=== PATIENT | male | born 1945 | race Caucasian/White ===

== ENCOUNTER 2016-01-10 13:38 | Outpatient (RCR) | payer MEDICARE, OTHER ==
[~2016-01-10 13:38] MED LIST: AMLO10TA PO; ASPI-480 PO; CHOL100011 PO; CLON0.1T14 PO; CLOP75TA PO; CLOP75TA28 PO; FISH1CAP15 PO; GEMF600T3 PO; INSU100C SQ; INSU100I10 SQ; INSU100I14 SQ; ISORBIDE; ISOS30TA3 PO; LINA5TAB PO; LOSA1TAB23 PO; METF-380 PO; METO100T2 PO; MTF500T PO; POTA20TA15 PO; ROSU20TA14 PO; SITA1TAB6 PO; TMSL.4C PO; [UNRECOGNIZED DRUG - OTHER]; [UNRECOGNIZED DRUG - OTHER]
[2016-01-10 13:48] LABS: BASOPHILS % (AUTO) 1 % (0-10); EOSINOPHILS # (AUTO) 0.3 10^3/uL (0.0-0.3); EOSINOPHILS % (AUTO) 4 % (0-10); LYMPHOCYTES # (AUTO) 1.7 X 10^3 (1.0-4.0); LYMPHOCYTES % (AUTO) 22 % (12-44); MEAN CORPUSCULAR HEMOGLOBIN 30 PG (25-34); MEAN CORPUSCULAR HGB CONC 35 G/DL (32-36); MEAN CORPUSCULAR VOLUME 84 FL (80-99); MONOCYTES # (AUTO) 0.7 X 10^3 (0.0-1.0); MONOCYTES % (AUTO) 9 % (0-12); NEUTROPHILS # (AUTO) 5.1 X 10^3 (1.8-7.8); NEUTROPHILS % (AUTO) 65 % (42-75); PLATELET COUNT 199 10^3/uL (130-400); RED BLOOD COUNT 4.92 10^6/uL (4.35-5.85); RED CELL DISTRIBUTION WIDTH 13.4 % (10.0-14.5); WHITE BLOOD COUNT 7.9 10^3/uL (4.3-11.0)
[2016-01-10 14:21] LABS: ALANINE AMINOTRANSFERASE 26 U/L (0-55); ANION GAP 15 MMOL/L (5-14); ASPARTATE AMINO TRANSFERASE 17 U/L (5-34); BILIRUBIN,TOTAL 0.5 MG/DL (0.1-1.0); BLOOD UREA NITROGEN 19 MG/DL (7-18); BUN/CREATININE RATIO 18; CALCIUM 9.2 MG/DL (8.5-10.1); CARBON DIOXIDE 19 MMOL/L (21-32); CHLORIDE 107 MMOL/L (98-107); CREATININE SERUM 1.08 MG/DL (0.60-1.30); GFR ESTIMATED > 60; GLUCOSE 237 MG/DL (70-105); LACTATE DEHYDROGENASE 200 U/L (125-220); POTASSIUM 3.9 MMOL/L (3.6-5.0); SODIUM 141 MMOL/L (135-145); TOTAL PROTEIN 6.4 G/DL (6.4-8.2)
== END 2016-04-09 | disposition home or self-care (01) ==
LOC: ONC 13:38
PROVIDERS: ATTEND Internal Medicine Hematology & Oncology
DX: C91.40 Hairy cell leukemia not having achieved remission (principal); I50.9 Heart failure, unspecified; I25.10 Atherosclerotic heart disease of native coronary artery without angina pectoris; E11.9 Type 2 diabetes mellitus without complications; F41.9 Anxiety disorder, unspecified; N40.0 Benign prostatic hyperplasia without lower urinary tract symptoms; Z79.899 Other long term (current) drug therapy; Z79.4 Long term (current) use of insulin; Z95.1 Presence of aortocoronary bypass graft; Z87.891 Personal history of nicotine dependence
CPT/HCPCS: 36415; 80053; 83615; 85025; 99213

== ENCOUNTER → 2016-05-20 | Outpatient (CLI) | payer MEDICARE, OTHER ==
[~2016-05-20] MED LIST changes: +GADOBUTROL 10 MMOL/10 ML (GADAVIST) VIAL IV ONE
--- OUTSIDE RECORDS SUMMARY | 2016-05-20 09:05 | XMS REPORT | Continuity of Care Document ---
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 Medications Current Home Medications Medication Dose Units Route Directions Days/Qty Instructions Start Date Amlodipine Besylate 10 Mg 10 Mg Oral Daily 09/17/13 Gemfibrozil (Lopid) 600 Mg 600 Mg Oral Twice A Day 09/17/13 Losartan/Hydrochlorothiazide 1 Each 1 Tab Oral Daily 09/17/13 Metoprolol Tartrate (Lopressor) 100 Mg 100 Mg Oral Twice A Day 09/17 Tamsulosin Hcl 0.4 Mg 0.8 Mg Oral 1700 TAKES 2 (0.4MG) CAPSULES Insulin Glargine 300 Unit/3 Ml 45 Units Sub-Q Am 09/17/13 Insulin Glargine 300 Unit/3 Ml 55 Units Sub-Q Bedtime 09/17/13 Rosuvastatin Calcium 20 Mg 20 Mg Oral 1700 09/17/13 Potassium Chloride 20 Meq 20 Meq Oral Daily 09/23/13 Metformin Hcl (Glucophage) 500 Mg 1,000 Mg Oral Twice A Day With Meals 06/01/14 Isosorbide Mononitrate (Imdur) 30 Mg 30 Mg Oral 1700 06/01/14 Clonidine Hcl 0.1 Mg 0.1 Mg Oral Twice A Day 06/01/14 Fish Oil/Dha/Epa 1 Each 1,200 Mg Oral Daily 06/01/14 Cholecalciferol 1,000 Unit 1,000 Unit Oral Daily 06/01/14 Insulin Aspart 100 Unit/1 Ml 30 Units Sub-Q Twice A Day 06/01/14 Insulin Aspart 100 Unit/1 Ml 15 Units Sub-Q 1200 06/01/14 Past Home Medications Medication Directions Ordered Status Clopidogrel Bisulfate 75 Mg Tablet, 1 Each Oral Daily 09/17/13 Discontinued Rosuvastatin Calcium 20 Mg Tablet, 1 Each Oral Daily 09/17/13 Discontinued Metformin Hcl (Glucophage) 1,000 Mg Tablet, 1 Each Oral Twice A Day With Meals 09/17/13 Discontinued Linagliptin 5 Mg Tablet, 5 Mg Oral Daily 09/17/13 Discontinued [Isorbide/Monotritate] , 30 Mg Daily 09/17/13 Discontinued Aspirin 81 Mg Tablet.dr, 81 Mg Oral Daily 09/17/13 Discontinued [Hydrolozine] Unknown Strength , Unknown Dose Three Times A Day 09/17/13 Discontinued Sitagliptin Phos/Metformin Hcl 1 Each Tablet, 1 Each Oral Twice A Day With Meals 09/23/13 Discontinued Clopidogrel Bisulfate 75 Mg Tablet, 75 Mg Oral Daily 09/23/13 Discontinued Insulin Lispro 100 Unit/1 Ml Cartridge, 30 Units Sub-Q Twice A Day 06/01/14 Discontinued Insulin Lispro 100 Unit/1 Ml Cartridge, 15 Unit Sub-Q 1200 06/01/14 Discontinued Social History Social History Problem Response Recorded Date/Time Alcohol Use Denies Use 09/24/2013 9:20pm Recreational Drug Use No 09/24/2013 9:20pm Recent Foreign Travel [place] [facility] 01/10/2016 1:37pm Hospital Discharge Instructions No hospital discharge instructions. Plan of Care Prescriptions See Medication Section Functional Status No functional status results. Allergies, Adverse Reactions, Alerts No known allergies. Immunizations No immunization records. Vital Signs No known vital signs results. Results Laboratory Results Test Name Result Units Flags Reference Collection Date/Time Result Date/ Time Comments White Blood Count 7.9 10^3/uL 4.3-11.0 01/10/2016 1:44pm 01/10/2016 1: 49pm Red Blood Count 4.92 10^6/uL 4.35-5.85 01/10/2016 1:44pm 01/10/2016 1: 49pm Hemoglobin 14.5 G/DL 13.3-17.7 01/10/2016 1:44pm 01/10/2016 1:49pm Hematocrit 41 % 40-54 01/10/2016 1:44pm 01/10/2016 1:49pm Mean Corpuscular Volume 84 FL 80-99 01/10/2016 1:44pm 01/10/2016 1: 49pm Mean Corpuscular Hemoglobin 30 PG 25-34 01/10/2016 1:44pm 01/10/2016 1: 49pm Mean Corpuscular Hemoglobin Concent 35 G/DL 32-36 01/10/2016 1:44pm 08/2015 1:49pm Red Cell Distribution Width 13.4 % 10.0-14.5 01/10/2016 1:44pm 2015 1:49pm Platelet Count 199 10^3/uL 130-400 01/10/2016 1:44pm 01/10/2016 1:49pm Mean Platelet Volume 10.0 FL 7.4-10.4 01/10/2016 1:44pm 01/10/2016 1: 49pm Neutrophils (%) (Auto) 65 % 42-75 01/10/2016 1:44pm 01/10/2016 1:49pm Lymphocytes (%) (Auto) 22 % 12-44 01/10/2016 1:44pm 01/10/2016 1:49pm Monocytes (%) (Auto) 9 % 0-12 01/10/2016 1:44pm 01/10/2016 1:49pm Eosinophils (%) (Auto) 4 % 0-10 01/10/2016 1:44pm 01/10/2016 1:49pm Basophils (%) (Auto) 1 % 0-10 01/10/2016 1:44pm 01/10/2016 1:49pm Neutrophils # (Auto) 5.1 X 10^3 1.8-7.8 01/10/2016 1:44pm 01/10/2016 1: 49pm Lymphocytes # (Auto) 1.7 X 10^3 1.0-4.0 01/10/2016 1:44pm 01/10/2016 1: 49pm Monocytes # (Auto) 0.7 X 10^3 0.0-1.0 01/10/2016 1:44pm 01/10/2016 1: 49pm Eosinophils # (Auto) 0.3 10^3/uL 0.0-0.3 01/10/2016 1:44pm 01/10/2016 1 :49pm Basophils # (Auto) 0.0 10^3/uL 0.0-0.1 01/10/2016 1:44pm 01/10/2016 1: 49pm Sodium Level 141 MMOL/L 135-145 01/10/2016 1:44pm 01/10/2016 2:22pm Potassium Level 3.9 MMOL/L 3.6-5.0 01/10/2016 1:44pm 01/10/2016 2:22pm Chloride Level 107 MMOL/L 98-107 01/10/2016 1:44pm 01/10/2016 2:22pm Carbon Dioxide Level 19 MMOL/L L 21-32 01/10/2016 1:44pm 01/10/2016 2: 22pm Anion Gap 15 MMOL/L H 5-14 01/10/2016 1:44pm 01/10/2016 2:22pm Blood Urea Nitrogen 19 MG/DL H 7-18 01/10/2016 1:44pm 01/10/2016 2:22pm Creatinine 1.08 MG/DL 0.60-1.30 01/10/2016 1:44pm 01/10/2016 2:22pm BUN/Creatinine Ratio 18 01/10/2016 1:44pm 01/10/2016 2:22pm Estimat Glomerular Filtration Rate > 60 01/10/2016 1:44pm 2015 2:22pm GFR INTERPRETIVE DATA UNITS FOR ESTIMATED GFR (eGFR): mL/min/1.73 M2 REFERENCE RANGE FOR ESTIMATED GFR (eGFR) eGFR NORMAL eGFR >60 MODERATELY DECREASED eGFR 30-59 SEVERLY DECREASED eGFR 15-29 KIDNEY FAILURE <15 (OR DIALYSIS) Glucose Level 237 MG/DL H 70-105 01/10/2016 1:44pm 01/10/2016 2:22pm Calcium Level 9.2 MG/DL 8.5-10.1 01/10/2016 1:44pm 01/10/2016 2:22pm Total Bilirubin 0.5 MG/DL 0.1-1.0 01/10/2016 1:44pm 01/10/2016 2:22pm Alkaline Phosphatase 47 U/L 40-136 01/10/2016 1:44pm 01/10/2016 2:22pm Aspartate Amino Transf (AST/SGOT) 17 U/L 5-34 01/10/2016 1:44pm 2015 2:22pm Alanine Aminotransferase (ALT/SGPT) 26 U/L 0-55 01/10/2016 1:44pm 01/09 2:22pm Lactate Dehydrogenase 200 U/L 125-220 01/10/2016 1:44pm 01/10/2016 2: 22pm Total Protein 6.4 G/DL 6.4-8.2 01/10/2016 1:44pm 01/10/2016 2:22pm Albumin 4.0 G/DL 3.2-4.5 01/10/2016 1:44pm 01/10/2016 2:22pm Procedures No known history of procedures. Encounters Encounter Location Arrival/Admit Date Discharge/Depart Date Attending Provider Discharged Recurring [facility] 01/10/16 1:38pm 11:59pm OSMANY ALDRICH
[2016-05-20 09:42] LABS: BLOOD UREA NITROGEN 19 MG/DL (7-18); BUN/CREATININE RATIO 17; CREATININE SERUM 1.11 MG/DL (0.60-1.30); GFR ESTIMATED > 60
--- NOTE | 2016-05-20 13:05 | Diagnostic Imaging Report ---
PROCEDURE: MR imaging of the brain with and without contrast. TECHNIQUE: Multiplanar, multisequence MR imaging of the brain was performed with and without contrast. INDICATION: History of leukemia and Parkinson's disease. 9 mL of Gadavist is administered intravenously. FINDINGS: There is no diffusion restriction to suggest an acute infarct or other diffusion abnormality. There is nonspecific mild periventricular and deep white matter T2 hyperintense signal seen, commonly seen at the patient's age, and is not associated with mass effect or post contrast enhancement. This is probably related to chronic microvascular ischemic changes. There is no hydrocephalus. The central vascular flow-voids appear grossly unremarkable. The internal auditory canals and inner ear structures appear symmetric. No extra-axial fluid collection or enhancing mass identified. The pituitary gland is normal in size. No hypothalamic or pineal region mass. The paranasal sinuses and orbits appear grossly unremarkable. The pituitary gland appear unremarkable. IMPRESSION: White matter findings are likely secondary to chronic microvascular ischemic changes. No acute infarct. No enhancing mass. Dictated by: Dictated on workstation # [id number]
== END ==
LOC: RAD 09:02
PROVIDERS: ATTEND Psychiatry & Neurology Neurology
DX: G20 Parkinson's disease (principal)
CPT/HCPCS: 36415; 70553; 82565; 84520

== ENCOUNTER 2016-09-23 19:24 | Observation (INO) | payer MEDICARE, OTHER ==
[~2016-09-23] VITALS: Ht 182.9 cm; Wt 94.8 kg
[~2016-09-23 19:24] MED LIST changes: -GADOBUTROL 10 MMOL/10 ML (GADAVIST) VIAL IV ONE
--- NOTE | 2016-09-23 19:37 | ED Syncope ---
General Stated Complaint: DIZZINESS Source of Information: Patient, EMS History of Present Illness Time Seen by Provider: 19:28 Initial Comments PT ARRIVES VIA EMS PT WAS AT FRIEND'S HOUSE, AND WAS STANDING AND SUDDENLY BECAME DIZZY, NAUSEATED , DIAPHORETIC AND PASSED OUT NO INJURY--WAS EASED TO THE GROUND BY BYSTANDERS PT WAS UNRESPONSIVE APPROXIMATELY 2 MINUTES PT STATES HE FEELS COMPLETELY FINE NOW NO CHEST PAIN NO SHORTNESS OF BREATH NO PALPITATIONS NO HEADACHE NO VISION CHANGES NO PARESTHESIAS OR MOTOR DEFICITS DENIES ANY RECENT ILLNESS OR FEVER, ETC. LEGS HAVE BEEN SWOLLEN FOR THE LAST WEEK, BUT PT DOES DRINK PICKLE JUICE AND TOMATO JUICE FOR BREAKFAST EMS STATE ACCUCHECK 189 AT SCENE BP 139/64 AND THEN 160/63, PULSE 50 AND 56, O2 SAT 93% THEN 975 ON O2 AT 4L/NC PT IS DIABETIC AND STATES HE ONLY SNACKED A LITTLE ON CARROTS AND CAULIFLOWER THIS EVENING--HAD NOT HAD A CHANCE TO EAT YET PT TOOK HIS REGULAR MEDICATIONS AT 1630 TONIGHT PT HAD NOT HAD A FULL BEER TONIGHT, AND DOES NOT NORMALLY DRINK NO HISTORY OF SIMILAR PT DOES STATE HE HAS AN ABDOMINAL ANEURYSM, THAT HE GETS CHECKED EVERY 6 MONTHS , AND WAS 4.2 CM A MONTH AGO--STABLE/UNCHANGED PCP: DR. LY Allergies and Home Medications Allergies Coded Allergies: No Known Drug Allergies (Unverified , 09/17/13) Home Medications Amlodipine Besylate 10 Mg Tablet, 10 MG PO DAILY, (Reported) Cholecalciferol 1,000 Unit Capsule, 1,000 UNIT PO DAILY, (Reported) Clonidine HCl 0.1 Mg Tablet, 0.1 MG PO BID, (Reported) Fish Oil/Dha/Epa 1 Each Capsule, 1,200 MG PO DAILY, (Reported) Gemfibrozil 600 Mg Tablet, 600 MG PO BID, (Reported) Insulin Aspart 100 Unit/1 Ml Insuln.pen, 30 UNITS SQ BID, (Reported) Insulin Aspart 100 Unit/1 Ml Insuln.pen, 15 UNITS SQ 1200, (Reported) Insulin Glargine,Hum.rec.anlog 300 Unit/3 Ml Insuln.pen, 45 UNITS SQ AM, ( Reported) Insulin Glargine,Hum.rec.anlog 300 Unit/3 Ml Insuln.pen, 55 UNITS SQ HS, ( Reported) Isosorbide Mononitrate 30 Mg Tab.sr.24h, 30 MG PO 1700, (Reported) Losartan/Hydrochlorothiazide 1 Each Tablet, 1 TAB PO DAILY, (Reported) Metformin Hcl 500 Mg Tablet, 1,000 MG PO BID WITH MEALS, (Reported) Metoprolol Tartrate 100 Mg Tablet, 100 MG PO BID, (Reported) Potassium Chloride 20 Meq Tab.prt.sr, 20 MEQ PO DAILY, (Reported) Rosuvastatin Calcium 20 Mg Tablet, 20 MG PO 1700, (Reported) Tamsulosin Hcl 0.4 Mg Cap.er.24h, 0.8 MG PO 1700, (Reported) TAKES 2 (0.4MG) CAPSULES Constitutional: see HPI, diaphoresis, dizziness EENTM: no symptoms reported Respiratory: no symptoms reported Cardiovascular: see HPI, No chest pain, No edema, No palpitations, syncope, No vascular heart diseas Gastrointestinal: see HPI, No abdominal pain, No constipation, No diarrhea, No loss of appetite, nausea, No vomiting Genitourinary: no symptoms reported Musculoskeletal: no symptoms reported Skin: no symptoms reported Psychiatric/Neurological: See HPI, Denies Headache, Denies Numbness, Denies Paresthesia, Denies Seizure, Denies Tingling, Denies Tremors, Denies Weakness Past Lpcxgmm-Ojgwzb-Ndwstb Hx Patient Social History Alcohol Use: Rarely Uses Recreational Drug Use: No Immunizations Up To Date Date of Pneumonia Vaccine: Feb 05, 2014 Date of Influenza Vaccine: Jan 29, 2014 Surgeries HX Surgeries: Yes (HEMORRHOIDECTOMY; CARDIAC CATHS--STENTS X 4 AND CABG; COLONOSCOPY WITH POLYPECTOMY) Surgeries: Appendectomy, Cardiac, CABG, Coronary Stent, Rectal, Tonsillectomy Respiratory Hx Respiratory Disorders: Yes Respiratory Disorders: Sleep Apnea Cardiovascular Hx Cardiac Disorders: Yes (CABG AND STENTS X 4; AAA 4.2 CM--MONITORED EVERY 6 MONTHS) Cardiac Disorders: Aneurysm, Coronary Artery Disease, Hypertension Neurological Hx Neurological Disorders: No Genitourinary Hx Genitourinary Disorders: Yes Genitourinary Disorders: Benign Prostatic Hyperpl, Kidney Stones Gastrointestinal Hx Gastrointestinal Disorders: Yes Gastrointestinal Disorders: Colitis, Gastrointestinal Bleed, Polyps Musculoskeletal Hx Musculoskeletal Disorders: No Endocrine Hx Endocrine Disorders: Yes Endocrine Disorders: Diabetes, Insulin dep HEENT HX ENT Disorders: Yes HEENT Disorders: Cataract Cancer Hx Cancer: Yes (HAIRY CELL LEUKEMIA; MELAOMA) Cancer: Leukemia, Melanoma Psychosocial Hx Psychiatric Problems: No Integumentary HX Skin/Integumentary Disorder: Yes (SKIN CA ; MELANOMA) Blood Transfusions Hx Blood Disorders: No Family Medical History Family Medial History: Cancer 19 FATHER (ESOPHAGEAL CA. AT 48) G8 BROTHER (LUNG/ORAL CANCER) Family history: Diabetes mellitus 19 FATHER Family history: Hypertension 19 FATHER Physical Exam Vital Signs Vital Sign - Last 12Hours 09/23/16 19:24 Temp 96.2 Pulse 77 Resp 17 B/P (MAP) 160/84 Pulse Ox 97 O2 Delivery Nasal Cannula O2 Flow Rate 4.00 Capillary Refill : General Appearance: No Apparent Distress, WD/WN HEENT: PERRL/EOMI, Pharynx Normal, Other (GLASSES) Neck: Full Range of Motion, Normal Inspection, Non Tender, Supple, No Carotid Bruit, No JVD Cardiovascular: Regular Rate, Rhythm, No JVD, No Murmur, Normal Peripheral Pulses Respiratory: Chest Non Tender, Normal Breath Sounds, No Accessory Muscle Use, No Respiratory Distress Gastrointestinal: Normal Bowel Sounds, No Organomegaly, No Pulsatile Mass, Non Tender, Soft Back: Normal Inspection, No CVA Tenderness, No Vertebral Tenderness Extremities: Normal Capillary Refill, Normal Range of Motion, Non Tender, No Calf Tenderness, Pedal Edema (1+ BILATERALLY) Neurologic/Psychiatric: Alert, Oriented x3, No Motor/Sensory Deficits, Normal Mood/Affect, non destructive testing scientist II-XII Norm as Tested, No Abnormal Cerebellar Tests Cranial Nerves: Normal Hearing, Normal Speech, PERRL Coordination/Gait: Normal Finger to Nose, Normal Gait, Negative Romberg's Sign Motor/Sensory: No Motor Deficit, No Sensory Deficit, No Pronator Drift, Negative Babinski's Sign Reflexes: 2+ Bicep (R), 2+ Bicep (L), 2+ Knee (R), 2+ Knee (L) Skin: Normal Color, Warm/Dry Focused Exam Lactic Acid Level Progress/Results/Core Measures Results/Orders Lab Results Laboratory Tests Test 09/23/16 19:30 09/23/16 20:39 Range/Units White Blood Count 8.1 4.3-11.0 10^3/uL Red Blood Count 4.76 4.35-5.85 10^6/uL Hemoglobin 14.0 13.3-17.7 G/DL Hematocrit 41 40-54 % Mean Corpuscular Volume 86 80-99 FL Mean Corpuscular Hemoglobin 29 25-34 PG Mean Corpuscular Hemoglobin Concent 34 32-36 G/DL Red Cell Distribution Width 13.4 10.0-14.5 % Platelet Count 209 130-400 10^3/uL Mean Platelet Volume 10.7 H 7.4-10.4 FL Neutrophils (%) (Auto) 68 42-75 % Lymphocytes (%) (Auto) 20 12-44 % Monocytes (%) (Auto) 9 0-12 % Eosinophils (%) (Auto) 3 0-10 % Basophils (%) (Auto) 1 0-10 % Neutrophils # (Auto) 5.5 1.8-7.8 X 10^3 Lymphocytes # (Auto) 1.6 1.0-4.0 X 10^3 Monocytes # (Auto) 0.7 0.0-1.0 X 10^3 Eosinophils # (Auto) 0.3 0.0-0.3 10^3/uL Basophils # (Auto) 0.1 0.0-0.1 10^3/uL Prothrombin Time 12.9 12.2-14.7 SEC INR Comment 1.0 0.8-1.4 Activated Partial Thromboplast Time 27 24-35 SEC Sodium Level 143 135-145 MMOL/L Potassium Level 3.8 3.6-5.0 MMOL/L Chloride Level 105 98-107 MMOL/L Carbon Dioxide Level 21 21-32 MMOL/L Anion Gap 17 H 5-14 MMOL/L Blood Urea Nitrogen 20 H 7-18 MG/DL Creatinine 1.09 0.60-1.30 MG/DL Estimat Glomerular Filtration Rate > 60 BUN/Creatinine Ratio 18 0-20 Glucose Level 213 H 70-105 MG/DL Calcium Level 9.3 8.5-10.1 MG/DL Magnesium Level 1.9 1.8-2.4 MG/DL Total Bilirubin 0.7 0.1-1.0 MG/DL Aspartate Amino Transf (AST/SGOT) 25 5-34 U/L Alanine Aminotransferase (ALT/SGPT) 8 0-55 U/L Alkaline Phosphatase 48 40-136 U/L Total Creatine Kinase 245 H 30-200 U/L Creatine Kinase MB 5.4 <6.6 NG/ML Troponin I < 0.30 <0.30 NG/ML B-Type Natriuretic Peptide 32.0 <100.0 PG/ML Total Protein 6.8 6.4-8.2 GM/DL Albumin 3.7 3.2-4.5 GM/DL TSH [place] Testing 1.36 0.35-4.94 UIU/ML Urine Color YELLOW Urine Clarity CLEAR Urine pH 5 5-9 Urine Specific Pimento 1.025 H 1.016-1.022 Urine Protein 4+ NEGATIVE Urine Glucose (UA) 3+ H NEGATIVE Urine Ketones 1+ H NEGATIVE Urine Nitrite NEGATIVE NEGATIVE Urine Bilirubin NEGATIVE NEGATIVE Urine Urobilinogen NORMAL NORMAL MG/DL Urine Leukocyte Esterase 2+ H NEGATIVE Urine RBC (Auto) 1+ H NEGATIVE Urine RBC 0-2 /HPF Urine WBC TNTC H /HPF Urine Squamous Epithelial Cells 10-25 H /HPF Urine Crystals NONE /LPF Urine Bacteria FEW H /HPF Urine Casts NONE /LPF Urine Mucus NEGATIVE /LPF Urine Culture Indicated YES My Orders Orders - RHONDA ANDUJAR DO Saline Lock/Iv-Start (09/23/16 19:34) Orthostatic Vital Signs (09/23/16 19:34) Ekg Tracing (09/23/16 19:34) O2 (09/23/16 19:34) Monitor-Rhythm Ecg Trace Only (09/23/16 19:34) Ct Head Wo (09/23/16 19:34) Cbc With Automated Diff (09/23/16 19:34) Comprehensive Metabolic Panel (09/23/16 19:34) Creatine Kinase (09/23/16 19:34) Creatine Kinase Mb (09/23/16 19:34) Magnesium (09/23/16 19:34) Protime With Inr (09/23/16 19:34) Partial Thromboplastin Time (09/23/16 19:34) Thyroid Analyzer (09/23/16 19:34) Troponin I (09/23/16 19:34) Ua Culture If Indicated (09/23/16 19:34) Chest 1 View, Ap/Pa Only (09/23/16 19:34) BNP (09/23/16 20:26) Urine Culture (09/23/16 20:39) Saline Lock/Iv-Start (09/23/16 21:05) Ns Iv 1000 Ml (Sodium Chloride 0.9%) (09/23/16 21:05) Medications Given in ED Current Medications Medications Dose Ordered Sig/Prabhjot Route Start Time Stop Time Status Last Admin Dose Admin Sodium Chloride 1,000 ml @ 0 mls/hr Q0M ONCE IV 09/23/16 21:05 09/23/16 21:06 DC 09/23/16 21:53 1,000 MLS/HR Vital Signs/I&O Vital Sign - Last 12Hours 09/23/16 19:24 Temp 96.2 Pulse 77 Resp 17 B/P (MAP) 160/84 Pulse Ox 97 O2 Delivery Nasal Cannula O2 Flow Rate 4.00 Progress Note : Progress Note UNEVENTFUL ER STAY--PT HAD NO SYMPTOMS OF ANY KIND DURING ER STAY ORTHOSTATICS MILDLY ABNORMAL--GIVEN IV FLUIDS O2 SATS IN 91-92 RANGE ON ROOM AIR--PLACED ON O2 AT 2L/NC AND SATS REMAINED IN UPPER 90'S FOR REMAINDER OF ER STAY ECG Initial ECG Impression Time: 19:37 Initial ECG Rate: 57 Initial ECG Rhythm: Normal Sinus Initial ECG Impression: Nonspecific Changes (LATERAL LEADS) Initial ECG Comparisson: Unchanged Diagnostic Imaging Comments CT HEAD--NO ACUTE PROCESS CXR--NO ACUTE PROCESS PER RADIOLOGIST REPORTS @ 2027 Reviewed: Reviewed by Me Departure Communication Progress Notes 2112--SPOKE WITH DR. WHITESIDE, HOSPITAL SECURITY OFFICER FOR DR. LY, ACCEPTS PT FOR ADMIT. Impression Impression: Primary Impression: Episode of syncope Additional Impressions: UTI (urinary tract infection) Hypoxia Diabetes mellitus Disposition: ADMITTED INPATIENT Condition: Improved Decision to Admit Reason: Admit from ER (General) Decision to Admit/Date: Sep 23, 2016 Time/Decision to Admit Time: 21:15 Departure-Patient Inst. Referrals: AHSAN LY MD (PCP/Family) Primary Care Physician RHONDA ANDUJAR DO Sep 23, 2016 19:37
[2016-09-23 19:57] LABS: BASOPHILS # (AUTO) 0.1 10^3/uL (0.0-0.1); BASOPHILS % (AUTO) 1 % (0-10); EOSINOPHILS # (AUTO) 0.3 10^3/uL (0.0-0.3); EOSINOPHILS % (AUTO) 3 % (0-10); LYMPHOCYTES # (AUTO) 1.6 X 10^3 (1.0-4.0); LYMPHOCYTES % (AUTO) 20 % (12-44); MEAN CORPUSCULAR HEMOGLOBIN 29 PG (25-34); MEAN CORPUSCULAR HGB CONC 34 G/DL (32-36); MEAN CORPUSCULAR VOLUME 86 FL (80-99); MEAN PLATELET VOLUME 10.7 FL (7.4-10.4); MONOCYTES # (AUTO) 0.7 X 10^3 (0.0-1.0); MONOCYTES % (AUTO) 9 % (0-12); NEUTROPHILS # (AUTO) 5.5 X 10^3 (1.8-7.8); NEUTROPHILS % (AUTO) 68 % (42-75); PLATELET COUNT 209 10^3/uL (130-400); RED BLOOD COUNT 4.76 10^6/uL (4.35-5.85); RED CELL DISTRIBUTION WIDTH 13.4 % (10.0-14.5); WHITE BLOOD COUNT 8.1 10^3/uL (4.3-11.0)
[2016-09-23 20:01] LABS: PROTHROMBIN TIME PATIENT 12.9 SEC (12.2-14.7)
[2016-09-23 20:05] LABS: CHLORIDE 105 MMOL/L (98-107); HEMOLYSIS 101 (-100-29); ICTERUS 0.2 (-100-1.9); LIPEMIA 27 (-100-49); POTASSIUM 3.8 MMOL/L (3.6-5.0); SODIUM 143 MMOL/L (135-145)
[2016-09-23 20:06] LABS: ALBUMIN 3.7 GM/DL (3.2-4.5); MAGNESIUM 1.9 MG/DL (1.8-2.4)
[2016-09-23 20:07] LABS: CALCIUM 9.3 MG/DL (8.5-10.1)
[2016-09-23 20:08] LABS: GLUCOSE 213 MG/DL (70-105); TOTAL PROTEIN 6.8 GM/DL (6.4-8.2)
[2016-09-23 20:09] LABS: ANION GAP 17 MMOL/L (5-14); CARBON DIOXIDE 21 MMOL/L (21-32)
[2016-09-23 20:10] LABS: BILIRUBIN,TOTAL 0.7 MG/DL (0.1-1.0)
[2016-09-23 20:12] LABS: CREATININE SERUM 1.09 MG/DL (0.60-1.30); GFR ESTIMATED > 60
[2016-09-23 20:13] LABS: ASPARTATE AMINO TRANSFERASE 25 U/L (5-34); BLOOD UREA NITROGEN 20 MG/DL (7-18); BUN/CREATININE RATIO 18 (0-20)
[2016-09-23 20:15] LABS: ALANINE AMINOTRANSFERASE 8 U/L (0-55); CREATINE KINASE 245 U/L (30-200)
--- NOTE | 2016-09-23 20:15 | Diagnostic Imaging Report ---
PROCEDURE: CT head without contrast. TECHNIQUE: Multiple contiguous axial images were obtained through the brain without the use of intravenous contrast. INDICATION: Sudden onset of dizziness There are no previous CT head examinations available for comparison. The MRI brain exam of 05/20/16 failed to show any sign of an acute abnormality. On this study, there is no mass, shift of the midline or hemorrhage to indicate an acute intracranial abnormality. The left lateral ventricle is somewhat larger than the right. This finding is similar to the prior study and most likely a developmental variant. The cortical atrophy and periventricular encephalomalacia seen previously are again visualized and no different. The bone windows show no evidence for a fracture or for a destructive lesion. The orbits and sinuses were not visualized in their entirety. Where visualized, there is no acute abnormality. IMPRESSION: 1. There is no evidence for an acute intracranial abnormality. 2. If clinical concern regarding an acute abnormality persists, then a repeat MRI brain exam would be recommended for further study. Dictated by: Dictated on workstation # [id number]
--- NOTE | 2016-09-23 20:18 | Diagnostic Imaging Report ---
EXAMINATION: Portable erect AP chest at 07:57 p.m. INDICATION: Coronary artery disease. FINDINGS: The heart size is within normal limits and stable when compared to 06/01/2014. In the interval since the prior exam, the patient has undergone a cardiac surgical procedure. There are now sternotomy wires and surgical clips evident. There is still no sign of failure, pneumonia, or pleural effusion to suggest an acute abnormality. The mediastinum is not widened. The osseous structures are intact. IMPRESSION: There has been an interval cardiac surgical procedure. There is still no evidence for an acute cardiopulmonary abnormality, however. Dictated by: Dictated on workstation # [id number]
[2016-09-23 20:23] LABS: TROPONIN I < 0.30 NG/ML (<0.30)
[2016-09-23 20:47] LABS: BILIRUBIN,URINE NEGATIVE (NEGATIVE); KETONES,URINE 1+ (NEGATIVE); LEUKOCYTE ESTERASE ,URINE 2+ (NEGATIVE); NITRITE,URINE NEGATIVE (NEGATIVE); PH,URINE 5 (5-9); PROTEIN,URINE 4+ (NEGATIVE); UROBILINOGEN,URINE NORMAL (NORMAL)
[2016-09-23 21:03] LABS: WBC,URINE TNTC /HPF
[2016-09-23] MEDS ORDERED: NS IV 1000 ML 1,000 ML IV ONE (21:05)
[2016-09-23] MEDS ORDERED: cefTRIAXone INJECTION 1,000 MG in NS (IVPB) 50 ML IV ONE (21:30)
[2016-09-23 23:30] VITALS: BP 191/90
[2016-09-24] VITALS (9 sets, daily range): BP systolic 150–173; BP diastolic 76–110
[2016-09-24] MEDS: NS IV 1000 ML 1,000 ML IV SCH ×2 (03:14→10:04)
[2016-09-24 04:13] LABS: BASOPHILS # (AUTO) 0.1 10^3/uL (0.0-0.1); BASOPHILS % (AUTO) 1 % (0-10); EOSINOPHILS # (AUTO) 0.3 10^3/uL (0.0-0.3); EOSINOPHILS % (AUTO) 3 % (0-10); LYMPHOCYTES # (AUTO) 1.8 X 10^3 (1.0-4.0); LYMPHOCYTES % (AUTO) 23 % (12-44); MEAN CORPUSCULAR HEMOGLOBIN 30 PG (25-34); MEAN CORPUSCULAR HGB CONC 35 G/DL (32-36); MEAN CORPUSCULAR VOLUME 86 FL (80-99); MEAN PLATELET VOLUME 10.2 FL (7.4-10.4); MONOCYTES # (AUTO) 0.7 X 10^3 (0.0-1.0); MONOCYTES % (AUTO) 8 % (0-12); NEUTROPHILS # (AUTO) 5.1 X 10^3 (1.8-7.8); NEUTROPHILS % (AUTO) 65 % (42-75); PLATELET COUNT 181 10^3/uL (130-400); RED BLOOD COUNT 4.46 10^6/uL (4.35-5.85); RED CELL DISTRIBUTION WIDTH 13.2 % (10.0-14.5); WHITE BLOOD COUNT 7.9 10^3/uL (4.3-11.0)
[2016-09-24 04:34] LABS: ALANINE AMINOTRANSFERASE 9 U/L (0-55); ALBUMIN 3.4 GM/DL (3.2-4.5); ANION GAP 12 MMOL/L (5-14); ASPARTATE AMINO TRANSFERASE 17 U/L (5-34); BILIRUBIN,TOTAL 0.7 MG/DL (0.1-1.0); BLOOD UREA NITROGEN 15 MG/DL (7-18); BUN/CREATININE RATIO 19 (0-20); CALCIUM 8.7 MG/DL (8.5-10.1); CARBON DIOXIDE 25 MMOL/L (21-32); CHLORIDE 106 MMOL/L (98-107); GFR ESTIMATED > 60; GLUCOSE 170 MG/DL (70-105); HEMOLYSIS 13 (-100-29); ICTERUS 0.6 (-100-1.9); LIPEMIA 5 (-100-49); POTASSIUM 3.2 MMOL/L (3.6-5.0); SODIUM 143 MMOL/L (135-145); TOTAL PROTEIN 5.8 GM/DL (6.4-8.2)
[2016-09-24] MEDS ORDERED: inSUlin (REGULAR) HUMAN 1 UNIT/0.01 ML (CHARGE PER UNIT) SC SCH (06:00)
[2016-09-24] MEDS ORDERED: PENI500T PO (09:05)
--- NOTE | 2016-09-24 11:13 | Short Stay Summary-Hospitalist ---
HPI History of Present Illness: HPI/Chief Complaint Mr. Brown is a 70-year-old white male who reports that he had been feeling well up until the evening of his admission. He was sitting on a barstool and started to feel weak and lightheaded. He stood up to try to find a couch with his at his side she states he became quite pale and passed out. They laid him down where he aroused and what seemed like a minute or 2 per her report although she was understandably panicked at a time. He had no loss of bowel or bladder control and no motor activity was reported. He knew where he was upon waking up just felt weak and there was no reported confusion. He has a history of diabetes but no evidence for hypoglycemia upon arrival to the emergency room without receiving D50 or anything per mouth blood sugar was over 200. He's had one other previous episode of lightheadedness several years ago but no reported past history of syncope. He does have a history of coronary artery disease and refractory hypertension for which she has been on clonidine and metoprolol previously without symptomatic bradycardia. He denied chest discomfort he also denied increased urinary frequency over baseline dysuria pyuria or hematuria. He was noted to have too numerous to count white cells in his urine and trace bacteria currently growing gram-positive cocci in chains. He has no previous history of urinary tract infection. He has not had any recent instrumentation of the urinary tract. There have been no recent medication additions. He has no past history of significant arrhythmias Date Seen 09/24/16 Time Seen by Provider: 07:00 Attending Physician Ahsan Ly MD PCP Ahsan Ly MD Referring Physician Date of Admission Sep 23, 2016 at 21:15 Home Medications & Allergies Home Medications Reviewed patient Home Medication Reconciliation Form Allergies Allergies Coded Allergies No Known Drug Allergies (Unverified09/17/13) Past [id number] Hx Patient Social History Alcohol Use: Occasionally Uses Recreational Drug Use: No Smoking Status: Never a Smoker 2nd Hand Smoke Exposure: No Physical Abuse Screen: No Sexual Abuse: No Recent Foreign Travel: No Contact w/other who traveled: No Recent Hopitalizations: No Recent Infectious Disease Expo: No Immunizations Up To Date Date of Pneumonia Vaccine: Feb 05, 2015 Date of Influenza Vaccine: Jan 29, 2014 Seasonal Allergies Seasonal Allergies: No Surgeries HX Surgeries: Yes (HEMORRHOIDECTOMY; CARDIAC CATHS--STENTS X 4 AND CABG; COLONOSCOPY WITH POLYPECTOMY) Surgeries: Appendectomy, Cardiac, CABG, Coronary Stent, Rectal, Tonsillectomy Respiratory Hx Respiratory Disorders: Yes Cardiovascular Hx Cardiovascular Disorders: Yes (CABG AND STENTS X 4; AAA 4.2 CM--MONITORED EVERY 6 MONTHS) Cardiac Disorders: Aneurysm, Coronary Artery Disease, Hypertension Neurological Hx Neurological Disorders: No Genitourinary Hx Genitourinary Disorders: Yes Genitourinary Disorders: Benign Prostatic Hyperpl, Kidney Stones Gastrointestinal Hx Gastrointestinal Disorders: Yes Gastrointestinal Disorders: Colitis, Gastrointestinal Bleed, Polyps Musculoskeletal Hx Musculoskeletal Disorders: No Endocrine Hx Endocrine Disorders: Yes Endocrine Disorders: Diabetes, Insulin dep HEENT HX ENT Disorders: Yes HEENT Disorders: Cataract Cancer Hx Cancer: Yes (HAIRY CELL LEUKEMIA; MELAOMA) Cancer: Leukemia, Melanoma Psychosocial Hx Psychiatric Problems: No Integumentary HX Skin/Integumentary Disorder: Yes (SKIN CA ; MELANOMA) Blood Transfusions Hx Blood Disorders: No Family Medical History Family Hx: Cancer 19 FATHER (ESOPHAGEAL CA. AT 48) G8 BROTHER (LUNG/ORAL CANCER) Family history: Diabetes mellitus Family history: Hypertension 19 FATHER Review of Systems Date Seen by Provider: Sep 24, 2016 Time Seen by Provider: 07:00 Constitutional: diaphoresis, weakness (at the time of syncope currently states he feels well) Respiratory: no symptoms reported, see HPI, No cough, No dyspnea on exertion, No orthopnea, No phlegm, No short of breath Cardiovascular: see HPI, No chest pain, No edema, No Hx of Intervention, No palpitations, syncope, No vascular heart diseas, No other Gastrointestinal: nausea (mild just before and after syncopal episode.) Genitourinary: see HPI Physical Exam Physical Exam Vital Signs Vital Sign - Last 12Hours 09/23/16 19:24 Temp 96.2 Pulse 77 Resp 17 B/P (MAP) 160/84 Pulse Ox 97 O2 Delivery Nasal Cannula O2 Flow Rate 4.00 Capillary Refill : Less Than 3 Seconds General Appearance: No Apparent Distress, WD/WN HEENT: PERRL/EOMI Neck: Full Range of Motion, Normal Inspection, Non Tender Respiratory: Chest Non Tender, Lungs Clear, Normal Breath Sounds, No Accessory Muscle Use, No Respiratory Distress Cardiovascular: Regular Rate, Rhythm, No Edema, No Gallop, No JVD, Normal Peripheral Pulses, Other (over 6 systolic ejection murmur no diastolic murmurs are noted. This is unchanged from this patient's baseline.) Extremity: Normal Capillary Refill, Normal Inspection, Normal Range of Motion, Non Tender, No Calf Tenderness, No Pedal Edema Skin: Normal Color, Warm/Dry Results Results/Procedures Lab Laboratory Tests 09/23/16 19:30 09/24/16 03:50 Short Stay Diagnosis Discharge Diagnosis-Short Stay Admission Diagnosis 1. Syncope of vasovagal etiology. 2. History of type II diabetes mellitus insulin requiring. 3. History of coronary artery disease with preserved left circular systolic function. 4. Urinary tract infection without sepsis Final Discharge Diagnosis as per above Conclusion Plan A she was admitted to the intensive care unit for overnight no arrhythmias were noted. While he slept sinus bradycardia was noted the upper 40s to lower 50s with no hypotension. Repeat orthostatic blood pressures were obtained in the morning before he had had any antihypertensive medication. His standing blood pressure was reportedly 150/110 with sinus tachycardia and a heart rate of 120. He was adamant about discharge stating that he felt well and continued to deny dysuria and did not exhibit increased frequency. He was able to ambulate without difficulty denying any chest symptoms or shortness of breath. Due to pyuria and gram-positive cocci in chains he was started on penicillin VK 500 mg 3 times a day with culture and sensitivity report pending at the time of this dictation. We discussed the importance of maintaining hydration and his clonidine was discontinued. He is to keep his appointment with me in 48 hours. We did discuss vasovagal syncope as being the most likely etiology although I could not rule out significant Bradyarrythmia or less likely tachyarrhythmia. For recurrent symptoms he will need early cardiology follow-up with event monitoring. His lactate level was mildly elevated but coming down last level just a little over 2. The patient however had no symptoms to suggest sepsis. This is likely due to hypotension surrounding syncope considering the patient looks and feels well currently with asymptomatic high blood pressure prior to receiving his antihypertensive medication. he will keep his already scheduled appointment with me this . He is to return to the emergency room should he have presyncope or syncope again. His is instructed to do all the driving in the interim. Clinical Quality Measures DVT/VTE Risk/Contraindication: Risk Factor Score Per Nursin RFS Level Per Nursing on Admit: 3=High AHSAN LY MD Sep 24, 2016 11:13
--- OUTSIDE RECORDS SUMMARY | 2016-09-26 13:06 | XMS REPORT | Continuity of Care Document ---
Author Author [facility] Organization [facility] Address Unknown Phone Unavailable Allergies Active Description Code Type Severity Reaction Onset Reported/Identified Relationship to Patient Clinical Status Yes No Known Drug Allergies [id number] Drug Allergy Unknown N/ A 09/17/2013 Medications Problems Date Dx Coded Attending Type Code Diagnosis Diagnosed By 09/17/2013 AHSAN LY MD Ot 211.3 BENIGN NEOPLASM LG BOWEL 09/17/2013 AHSAN LY MD Ot 569.0 ANAL RECTAL POLYP 09/17/2013 AHSAN LY MD Ot V76.51 SCREEN MAL NEOP-COLON 09/24/2013 AHSAN LY MD Ot 250.00 DIAB EDSON WO COMPL, TYPE II OR UNSPEC TY 09/24/2013 AHSAN LY MD Ot 272.4 HYPERLIPIDEMIA NEC/NOS 09/24/2013 AHSAN LY MD Ot 285.1 AC POSTHEMORRHAG ANEMIA 09/24/2013 AHSAN LY MD Ot 401.9 HYPERTENSION NOS 09/24/2013 AHSAN LY MD Ot 414.01 CORONARY ATHEROSCLEROSIS OF [place] CORON 09/24/2013 AHSAN LY MD Ot 998.11 HEMOR COMPLIC A PROCEDURE 09/24/2013 AHSAN LY MD Ot V45.82 PERCUTANEOUS TRANSLUM CORON ANGIOPLASTY 09/24/2013 AHSAN LY MD Ot V58.67 LONG-TERM (CURRENT) USE OF INSULIN 09/30/2013 AHSAN LY MD Ot 250.00 DIAB EDSON WO COMPL, TYPE II OR UNSPEC TY 09/30/2013 AHSAN LY MD Ot 272.4 HYPERLIPIDEMIA NEC/NOS 09/30/2013 AHSAN LY MD Ot 278.00 OBESITY, NOS 09/30/2013 AHSAN LY MD Ot 285.1 AC POSTHEMORRHAG ANEMIA 09/30/2013 AHSAN LY MD Ot 327.23 OBSTRUCTIVE SLEEP APNEA (ADULT) (PEDIATR 09/30/2013 AHSAN LY MD Ot 401.9 HYPERTENSION NOS 09/30/2013 AHSAN LY MD Ot 414.01 CORONARY ATHEROSCLEROSIS OF [place] CORON 09/30/2013 MALACHI DAVEY, AHSAN Shipman Ot 427.61 ATRIAL PREMATURE BEATS 09/30/2013 AHSAN LY MD Ot 427.69 PREMATURE BEATS NEC 09/30/2013 AHSAN LY MD Ot 998.11 HEMOR COMPLIC A PROCEDURE 09/30/2013 AHSAN LY MD Ot V45.82 PERCUTANEOUS TRANSLUM CORON ANGIOPLASTY 09/30/2013 AHSAN LY MD Ot V58.67 LONG-TERM (CURRENT) USE OF INSULIN 09/30/2013 AHSAN LY MD Ot V85.31 BODY MASS INDEX 31.0-31.9, ADULT 05/04/2014 AHSAN LY MD Ot V72.84 05/04/2014 AHSAN LY MD Ot 280.0 05/04/2014 AHSAN LY MD Ot 578.9 05/05/2014 AHSAN LY MD Ot V72.84 05/05/2014 AHSAN LY MD Ot 280.0 05/05/2014 AHSAN LY MD Ot 578.9 06/01/2014 AHSAN LY MD Ot V72.84 06/01/2014 AHSAN LY MD Ot 280.0 06/01/2014 AHSAN LY MD Ot 578.9 06/01/2014 RAHUL DAVEY, HIEU Miranda Ot 272.4 06/01/2014 RAHUL DAVEY, HIEU Miranda Ot 278.00 06/01/2014 RAHUL DAVEY, HIEU Miranda Ot 401.9 06/01/2014 RAHUL DAVEY, HIEU Miranda Ot 414.00 06/01/2014 RAHUL DAVEY, HIEU J Ot 427.69 06/01/2014 RAHUL DAVEY, HIEU J Ot 272.4 06/01/2014 RAHUL DAVEY, HIEU J Ot 278.00 06/01/2014 RAHUL DAVEY, HIEU Miranda Ot 401.9 06/01/2014 RAHUL DAVEY, HIEU J Ot 414.00 06/01/2014 RAHUL DAVEY, HIEU J Ot 427.69 06/01/2014 OSMANY ALDRICH Ot 202.40 06/01/2014 OSMANY ALDRICH Ot 250.00 06/01/2014 OSMANY ALDRICH Ot 300.00 06/01/2014 OSMANY ALDRICH Ot 414.00 06/01/2014 VALDEMAROSMANY COSTELLO N Ot 428.0 06/01/2014 VALDEMAR, OSMANY N Ot 600.00 06/01/2014 VALDEMAR, OSMANY N Ot V15.82 06/01/2014 VALDEMAROSMANY COSTELLO N Ot V45.81 06/01/2014 VALDEMAROSMANY COSTELLO N Ot V58.67 06/01/2014 VALDEMAROSMANY COSTELLO N Ot V58.69 06/01/2014 Ot 202.40 LEUKEMIC RETICULOENDOTHELLOSIS EXTRNDL 06/01/2014 Ot 250.00 DIAB EDSON WO COMPL, TYPE II OR UNSPEC TY 06/01/2014 Ot 272.4 HYPERLIPIDEMIA NEC/NOS 06/01/2014 Ot 401.9 HYPERTENSION NOS 06/01/2014 Ot 414.01 CORONARY ATHEROSCLEROSIS OF [place] CORON 06/01/2014 Ot 427.69 PREMATURE BEATS NEC 06/01/2014 Ot 794.30 ABN CARDIOVASC STUDY NOS 06/01/2014 Ot V45.82 PERCUTANEOUS TRANSLUM CORON ANGIOPLASTY 06/01/2014 Ot V58.67 LONG-TERM (CURRENT) USE OF INSULIN 06/01/2014 Ot V58.69 OT MED,LT,CURRENT USE 06/02/2014 HIEU KAY MD Ot 272.4 06/02/2014 RAHUL DAVEY, HIEU Miranda Ot 278.00 06/02/2014 HIEU KAY MD Ot 401.9 06/02/2014 HIEU KAY MD Ot 414.00 06/02/2014 HIEU KAY MD Ot 427.69 07/01/2014 VALDEMARGIAN COSTELLOSHAWN N Ot 202.40 07/01/2014 VALDEMAR, GIANSHAWN N Ot 250.00 07/01/2014 VALDEMAR, GIANSHAWN N Ot 300.00 07/01/2014 VALDEMAR, GIANSHAWN N Ot 414.00 07/01/2014 VALDEMAR, OSMANY N Ot 428.0 07/01/2014 VALDEMAR, GIANSHAWN N Ot 600.00 07/01/2014 VALDEMARGIAN COSTELLOSHAWN N Ot V15.82 07/01/2014 VALDEMAROSMANY COSTELLO N Ot V45.81 07/01/2014 VALDEMARGIANSHAWN N Ot V58.67 07/01/2014 VALDEMARGIANSHAWN N Ot V58.69 07/11/2014 MALACHI DAVEY, AHSAN Shipman Ot V72.84 07/11/2014 MALACHI DAVEY, AHSAN Shipman Ot 280.0 07/11/2014 MALACHI DAVEY, AHSAN Shipman Ot 578.9 07/11/2014 RAHUL DAVEY, HIEU Miranda Ot 272.4 07/11/2014 RAHUL DAVEY, HIEU Miranda Ot 278.00 07/11/2014 RAHUL DAVEY, HIEU Miranda Ot 401.9 07/11/2014 RAHUL DAVEY, HIEU Miranda Ot 414.00 07/11/2014 RAHUL DAVEY, HIEU Miranda Ot 427.69 07/11/2014 RAHUL DAVEY, HIEU Miranda Ot 272.4 07/11/2014 RAHUL DAVEY, HIEU Miranda Ot 278.00 07/11/2014 RAHUL DAVEY, HIEU Miranda Ot 401.9 07/11/2014 RAHUL DAVEY, HIEU Miranda Ot 414.00 07/11/2014 RAHUL DAVEY, HIEU Miranda Ot 427.69 07/11/2014 VALDEMAR, BOBAN N Ot 202.40 07/11/2014 VALDEMAR, BOBAN N Ot 250.00 07/11/2014 VALDEMAR, BOBAN N Ot 300.00 07/11/2014 VALDEMAR, BOBAN N Ot 414.00 07/11/2014 VALDEMAR, BOBAN N Ot 428.0 07/11/2014 VALDEMAR, BOBAN N Ot 600.00 07/11/2014 VALDEMAR, BOBAN N Ot V15.82 07/11/2014 VALDEMAR, BOBAN N Ot V45.81 07/11/2014 VALDEMAR, BOBAN N Ot V58.67 07/11/2014 VALDEMAR, BOBAN N Ot V58.69 07/11/2014 Ot 240.9 07/14/2014 Ot 240.9 08/24/2014 VALDEMAR, BOBAN N Ot 202.40 LEUKEMIC RETICULOENDOTHELLOSIS EXTRNDL 08/24/2014 VALDEMAR, BOBAN N Ot 250.00 DIAB EDSON WO COMPL, TYPE II OR UNSPEC TY 08/24/2014 VALDEMAR BOBAN N Ot 300.00 ANXIETY STATE NOS 08/24/2014 VALDEMAR BOBAN N Ot 414.00 CORON ATHEROSCLER NOS TYPE VESSEL, NATIV 08/24/2014 VALDEMAR BOBAN N Ot 428.0 CONGESTIVE HEART FAILURE NOS 08/24/2014 VALDEMAR BOBSHAWN N Ot 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 (BENIGN) 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 08/24/2014 OSMANY ALDRICH Ot V15.82 HISTORY OF TOBACCO USE 08/24/2014 OSMANY ALDRICH Ot V45.81 AORTOCORONARY BYPASS 08/24/2014 OSMANY ALDRICH Ot V58.67 LONG-TERM (CURRENT) USE OF INSULIN 08/24/2014 OSMANY ALDRICH Ot V58.69 OTH MED,LT,CURRENT USE 09/05/2014 HIEU KAY MD Ot V45.81 09/05/2014 RAHUL DAVEY, HIEU Miranda Ot V57.89 10/09/2014 HIEU KAY MD Ot V45.81 AORTOCORONARY BYPASS 10/09/2014 RAHUL DAVEY, HIEU Miranda Ot V57.89 REHABILITATION PROC NEC 10/14/2014 HIEU KAY MD Ot V45.81 10/14/2014 HIEU KAY MD Ot V57.89 10/14/2014 HIEU KAY MD Ot V45.81 10/14/2014 RAHUL DAVEY, HIEU Miranda Ot V57.89 10/14/2014 RAHUL DAVEY, HIEU Miranda Ot V45.81 10/14/2014 RAHUL DAVEY, HIEU Miranda Ot V57.89 10/14/2014 RAHUL DAVEY, HIEU Miranda Ot V45.81 10/14/2014 HIEU KAY MD Ot V57.89 10/17/2014 HIEU KAY MD Ot V45.81 10/17/2014 RAHUL DAVEY, HIEU Miranda Ot V57.89 12/02/2014 HIEU KAY MD Ot V45.81 12/02/2014 HIEU KAY MD Ot V57.89 12/19/2014 OSMANY ALDRICH Ot 202.40 12/19/2014 OSMANY ALDRICH Ot 250.00 12/19/2014 OSMANY ALDRICH Ot 300.00 12/19/2014 OSMANY ALDRICH Ot 414.00 12/19/2014 OSMANY ALDRICH Ot 428.0 12/19/2014 OSMANY ALDRICH Ot 600.00 12/19/2014 OSMANY ALDRICH Ot V15.82 12/19/2014 OSMANY ALDRICH Ot V45.81 12/19/2014 VALDEMAR, BOBAN N Ot V58.67 12/19/2014 VALDEMAR, BOBAN N Ot V58.69 12/19/2014 VALDEMAR, BOBAN N Ot 202.40 12/19/2014 VALDEMAR, BOBAN N Ot 250.00 12/19/2014 VALDEMAR, BOBAN N Ot 300.00 12/19/2014 VALDEMAR, BOBAN N Ot 414.00 12/19/2014 VALDEMAR, BOBAN N Ot 428.0 12/19/2014 VALDEMAR, BOBAN N Ot 600.00 12/19/2014 VALDEMAR, BOBAN N Ot V15.82 12/19/2014 VALDEMAR, BOBAN N Ot V45.81 12/19/2014 VALDEMAR, BOBAN N Ot V58.67 12/19/2014 VALDEMAR, BOBAN N Ot V58.69 12/27/2014 VALDEMAR, BOBAN N Ot 202.40 12/27/2014 VALDEMAR, BOBAN N Ot 250.00 12/27/2014 VALDEMAR, BOBAN N Ot 300.00 12/27/2014 VALDEMAR, BOBAN N Ot 414.00 12/27/2014 VALDEMAR, BOBAN N Ot 428.0 12/27/2014 VALDEMAR, BOBAN N Ot 600.00 12/27/2014 VALDEMAR, BOBAN N Ot E11.9 12/27/2014 VALDEMAR, BOBAN N Ot F41.9 12/27/2014 VALDEMAR, BOBAN N Ot I25.10 12/27/2014 VALDEMAR, BOBAN N Ot I50.9 12/27/2014 VALDEMAR, BOBAN N Ot N40.0 12/27/2014 VALDEMAR, BOBAN N Ot V15.82 12/27/2014 VALDEMAR, BOBAN N Ot V45.81 12/27/2014 VALDEMAR, BOBAN N Ot V58.67 12/27/2014 VALDEMAR, BOBAN N Ot V58.69 12/27/2014 VALDEMAR, BOBAN N Ot Z79.4 12/27/2014 VALDEMAR, BOBAN N Ot Z87.891 12/27/2014 VALDEMAR, BOBAN N Ot Z95.1 01/04/2015 VALDEMAR, BOBAN N Ot 202.40 LEUKEMIC RETICULOENDOTHELLOSIS EXTRNDL 01/04/2015 VALDEMAR, BOBAN N Ot 250.00 DIAB EDSON WO COMPL, TYPE II OR UNSPEC TY 01/04/2015 OSMANY ALDRICH N Ot 300.00 ANXIETY STATE NOS 01/04/2015 OSMANY ALDRICH N Ot 414.00 CORON ATHEROSCLER NOS TYPE VESSEL, NATIV 01/04/2015 OSMANY ALDRICH N Ot 428.0 CONGESTIVE HEART FAILURE NOS 01/04/2015 OSMANY ALDRICH N Ot 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 (BENIGN) 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 01/04/2015 OSMANY ALDRICH N Ot V15.82 HISTORY OF TOBACCO USE 01/04/2015 OSMANY ALDRICH N Ot V45.81 AORTOCORONARY BYPASS 01/04/2015 OSMANY ALDRICH N Ot V58.67 LONG-TERM (CURRENT) USE OF INSULIN 01/04/2015 OSMANY ALDRICH Ot V58.69 OTH MED,LT,CURRENT USE 01/04/2015 RAHUL DAVEY, HIEU Miranda Ot V45.81 AORTOCORONARY BYPASS 01/04/2015 RAHUL DAVEY, HIEU Miranda Ot V57.89 REHABILITATION PROC NEC 01/01/2016 OSMANY ALDRICH N Ot 202.40 01/01/2016 OSMANY ALDRICH N Ot 250.00 01/01/2016 VALDEMAROSMANY COSTELLO N Ot 300.00 01/01/2016 OSMANY ALDRICH N Ot 414.00 01/01/2016 OSMANY ALDRICH N Ot 428.0 01/01/2016 OSMANY ALDRICH N Ot 600.00 01/01/2016 OSMANY ALDRICH N Ot E11.9 TYPE 2 DIABETES MELLITUS WITHOUT COMPLIC 01/01/2016 OSMANY ALDRICH N Ot F41.9 ANXIETY DISORDER, UNSPECIFIED 01/01/2016 OSMANY ALDRICH N Ot I25.10 ATHSCL HEART DISEASE OF [place] CORONARY 01/01/2016 OSMANY ALDRICH N Ot I50.9 HEART FAILURE, UNSPECIFIED 01/01/2016 OSMANY ALDRICH N Ot N40.0 ENLARGED PROSTATE WITHOUT LOWER URINARY 01/01/2016 OSMANY ALDRICH N Ot V15.82 01/01/2016 OSMANY ALDRICH N Ot V45.81 01/01/2016 OSMANY ALDRICH N Ot V58.67 01/01/2016 OSMANY ALDRICH N Ot V58.69 01/01/2016 OSMANY ALDRICH Ot Z79.4 MACHINE SORTER (CURRENT) USE OF INSULIN 01/01/2016 OSMANY ALDRICH Ot Z87.891 PERSONAL HISTORY OF NICOTINE DEPENDENCE 01/01/2016 OSMANY ALDRICH Ot Z95.1 PRESENCE OF AORTOCORONARY BYPASS GRAFT 01/03/2016 AHSAN LY MD Ot V72.84 EXAM PRE-OPERATIVE NOS 01/03/2016 AHSAN LY MD Ot 280.0 CHR BLOOD LOSS ANEMIA 01/03/2016 AHSAN LY MD Ot 578.9 GASTROINTEST HEMORR NOS 01/03/2016 HIEU KAY MD Ot 272.4 HYPERLIPIDEMIA NEC/NOS 01/03/2016 HIEU KAY MD Ot 278.00 OBESITY, NOS 01/03/2016 HIEU KAY MD Ot 401.9 HYPERTENSION NOS 01/03/2016 HIEU KAY MD Ot 414.00 CORON ATHEROSCLER NOS TYPE VESSEL, NATIV 01/03/2016 HIEU KAY MD Ot 427.69 PREMATURE BEATS NEC 01/03/2016 HIEU KAY MD Ot 272.4 HYPERLIPIDEMIA NEC/NOS 01/03/2016 HIEU KAY MD Ot 278.00 OBESITY, NOS 01/03/2016 HIEU KAY MD Ot 401.9 HYPERTENSION NOS 01/03/2016 HIEU KAY MD Ot 414.00 CORON ATHEROSCLER NOS TYPE VESSEL, NATIV 01/03/2016 HIEU KAY MD Ot 427.69 PREMATURE BEATS NEC 01/03/2016 Ot 240.9 GOITER NOS 01/03/2016 OSMANY ALDRICH Ot 202.40 01/03/2016 OSMANY ALDRICH N Ot 250.00 01/03/2016 OSMANY ALDRICH N Ot 300.00 01/03/2016 OSMANY ALDRICH N Ot 414.00 01/03/2016 OSMANY ALDRICH N Ot 428.0 01/03/2016 OSMANY ALDRICH N Ot 600.00 01/03/2016 OSMANY ALDRICH N Ot V15.82 01/03/2016 OSMANY ALDRICH Ot V45.81 01/03/2016 OSMANY ALDRICH N Ot V58.67 01/03/2016 OSMANY ALDRICH N Ot V58.69 01/11/2016 OSMANY ALDRICH N Ot 202.40 01/11/2016 OSMANY ALDRICH N Ot 250.00 01/11/2016 OSMANY ALDRICH N Ot 300.00 01/11/2016 OSMANY ALDRICH N Ot 414.00 01/11/2016 OSMANY ALDRICH N Ot 428.0 01/11/2016 OSMANY ALDRICH N Ot 600.00 01/11/2016 OSMANY ALDRICH N Ot V15.82 01/11/2016 OSMANY ALDRICH N Ot V45.81 01/11/2016 OSMANY ALDRICH N Ot V58.67 01/11/2016 OSMANY ALDRICH Ot V58.69 01/25/2016 HIEU KAY MD Ot E11.9 TYPE 2 DIABETES MELLITUS WITHOUT COMPLIC 01/25/2016 HIEU KAY MD Ot E78.2 MIXED HYPERLIPIDEMIA 01/25/2016 HIEU KAY MD Ot E88.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 OF PLASMA-PROTEIN METABOLI 01/25/2016 HIEU KAY MD Ot I10 ESSENTIAL (PRIMARY) HYPERTENSION 01/25/2016 HIEU KAY MD Ot I25.10 ATHSCL HEART DISEASE OF [place] CORONARY 01/25/2016 HIEU KAY MD Ot I49.1 ATRIAL PREMATURE DEPOLARIZATION 01/25/2016 HIEU KAY MD Ot K80.20 CALCULUS OF GALLBLADDER W/O CHOLECYSTITI 01/25/2016 HIEU KAY MD, Ot Z79.4 MACHINE SORTER (CURRENT) USE OF INSULIN 02/14/2016 HIEU KAY MD Ot I49.1 ATRIAL PREMATURE DEPOLARIZATION 02/15/2016 HIEU KAY MD Ot E11.9 TYPE 2 DIABETES MELLITUS WITHOUT COMPLIC 02/15/2016 HIEU KAY MD, Ot E78.2 MIXED HYPERLIPIDEMIA 02/15/2016 HIEU KAY MD Ot E88.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 OF PLASMA-PROTEIN METABOLI 02/15/2016 HIEU KAY MD Ot I10 ESSENTIAL (PRIMARY) HYPERTENSION 02/15/2016 HIEU KAY MD, Ot I25.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 02/15/2016 HIEU KAY MD Ot I49.1 ATRIAL PREMATURE DEPOLARIZATION 02/15/2016 RAHUL MD, BASHAR J Ot Z79.4 SENIOR CARE (CURRENT) USE OF INSULIN 02/27/2016 VALDEMAROSMANY Ot 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 02/27/2016 OSMANY ALDRICH Ot E11.9 TYPE 2 DIABETES MELLITUS WITHOUT COMPLIC 02/27/2016 OSMANY ALDRICH Ot F41.9 ANXIETY DISORDER, UNSPECIFIED 02/27/2016 OSMANY ALDRICH Ot I25.10 ATHSCL HEART DISEASE OF [place] CORONARY 02/27/2016 OSMANY ALDRICH Ot I50.9 HEART FAILURE, UNSPECIFIED 02/27/2016 OSMANY ALDRICH Ot N40.0 ENLARGED PROSTATE WITHOUT LOWER URINARY 02/27/2016 OSMANY ALDRICH Ot Z79.4 SENIOR CARE (CURRENT) USE OF INSULIN 02/27/2016 OSMANY ALDRICH Ot Z79.899 OTHER MACHINE SORTER (CURRENT) DRUG THERAPY 02/27/2016 OSMANY ALDRICH Ot Z87.891 PERSONAL HISTORY OF NICOTINE DEPENDENCE 02/27/2016 OSMANY ALDRICH Ot Z95.1 PRESENCE OF AORTOCORONARY BYPASS GRAFT 03/06/2016 HIEU KAY MD Ot E11.9 TYPE 2 DIABETES MELLITUS WITHOUT COMPLIC 03/06/2016 HIEU KAY MD Ot E78.2 MIXED HYPERLIPIDEMIA 03/06/2016 HIEU KAY MD Ot E88.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 OF PLASMA-PROTEIN METABOLI 03/06/2016 HIEU KAY MD Ot I10 ESSENTIAL (PRIMARY) HYPERTENSION 03/06/2016 HIEU KAY MD Ot I25.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 03/06/2016 HIEU KAY MD Ot I49.1 ATRIAL PREMATURE DEPOLARIZATION 03/06/2016 HIEU KAY MD Ot Z79.4 SENIOR CARE (CURRENT) USE OF INSULIN 04/09/2016 OSMANY ALDRICH Ot 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 04/09/2016 OSMANY ALDRICH Ot E11.9 TYPE 2 DIABETES MELLITUS WITHOUT COMPLIC 04/09/2016 OSMANY ALDRICH Ot F41.9 ANXIETY DISORDER, UNSPECIFIED 04/09/2016 OSMANY ALDRICH Ot I25.10 ATHSCL HEART DISEASE OF [place] CORONARY 04/09/2016 VALDEMAR, BOBAN N Ot I50.9 HEART FAILURE, UNSPECIFIED 04/09/2016 OSMANY ALDRICH Ot N40.0 BENIGN PROSTATIC HYPERPLASIA WITHOUT LOW 04/09/2016 OSMANY ALDRICH Ot Z79.4 SENIOR CARE (CURRENT) USE OF INSULIN 04/09/2016 OSMANY ALDRICH N Ot Z79.899 OTHER SENIOR CARE (CURRENT) DRUG THERAPY 04/09/2016 OSMANY ALDRICH Ot Z87.891 PERSONAL HISTORY OF NICOTINE DEPENDENCE 04/09/2016 OSMANY ALDRICH Ot Z95.1 PRESENCE OF AORTOCORONARY BYPASS GRAFT 04/10/2016 OSMANY ALDRICH N Ot 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 04/10/2016 OSMANY ALDRICH Ot E11.9 TYPE 2 DIABETES MELLITUS WITHOUT COMPLIC 04/10/2016 OSMANY ALDRICH Ot F41.9 ANXIETY DISORDER, UNSPECIFIED 04/10/2016 OSMANY ALDRICH Ot I25.10 ATHSCL HEART DISEASE OF [place] CORONARY 04/10/2016 OSMANY ALDRICH Ot I50.9 HEART FAILURE, UNSPECIFIED 04/10/2016 OSMANY ALDRICH Ot N40.0 BENIGN PROSTATIC HYPERPLASIA WITHOUT LOW 04/10/2016 OSMANY ALDRICH Ot Z79.4 MACHINE SORTER (CURRENT) USE OF INSULIN 04/10/2016 OSMANY ALDRICH Ot Z79.899 OTHER SENIOR CARE (CURRENT) DRUG THERAPY 04/10/2016 OSMANY ALDRICH Ot Z87.891 PERSONAL HISTORY OF NICOTINE DEPENDENCE 04/10/2016 OSMANY ALDRICH Ot Z95.1 PRESENCE OF AORTOCORONARY BYPASS GRAFT 05/20/2016 AHSAN LY MD Ot V72.84 EXAM PRE-OPERATIVE NOS 05/20/2016 AHSAN LY MD Ot 280.0 CHR BLOOD LOSS ANEMIA 05/20/2016 AHSAN LY MD Ot 578.9 GASTROINTEST HEMORR NOS 05/20/2016 HIEU KAY MD Ot 272.4 HYPERLIPIDEMIA NEC/NOS 05/20/2016 HIEU KAY MD Ot 278.00 OBESITY, NOS 05/20/2016 HIEU KAY MD Ot 401.9 HYPERTENSION NOS 05/20/2016 HIEU KAY MD Ot 414.00 CORON ATHEROSCLER NOS TYPE VESSEL, NATIV 05/20/2016 HIEU KAY MD Ot 427.69 PREMATURE BEATS NEC 05/20/2016 HIEU KAY MD Ot 272.4 HYPERLIPIDEMIA NEC/NOS 05/20/2016 HIEU KAY MD Ot 278.00 OBESITY, NOS 05/20/2016 HIEU KAY MD Ot 401.9 HYPERTENSION NOS 05/20/2016 HIEU KAY MD Ot 414.00 CORON ATHEROSCLER NOS TYPE VESSEL, NATIV 05/20/2016 HIEU KAY MD Ot 427.69 PREMATURE BEATS NEC 05/20/2016 Ot 240.9 GOITER NOS 05/20/2016 HIEU KAY MD Ot E11.9 TYPE 2 DIABETES MELLITUS WITHOUT COMPLIC 05/20/2016 HIEU KAY MD Ot E78.2 MIXED HYPERLIPIDEMIA 05/20/2016 HIEU KAY MD Ot 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 05/20/2016 HIEU KAY MD Ot I10 ESSENTIAL (PRIMARY) HYPERTENSION 05/20/2016 HIEU KAY MD Ot I25.10 ATHSCL HEART DISEASE OF [place] CORONARY 05/20/2016 HIEU KAY MD Ot I49.1 ATRIAL PREMATURE DEPOLARIZATION 05/20/2016 HIEU KAY MD Ot K80.20 CALCULUS OF GALLBLADDER W/O CHOLECYSTITI 05/20/2016 HIEU KAY MD Ot Z79.4 MACHINE SORTER (CURRENT) USE OF INSULIN 05/20/2016 HIEU KAY MD Ot E11.9 TYPE 2 DIABETES MELLITUS WITHOUT COMPLIC 05/20/2016 HIEU KAY MD Ot E78.2 MIXED HYPERLIPIDEMIA 05/20/2016 HIEU KAY MD Ot 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 05/20/2016 HIEU KAY MD Ot I10 ESSENTIAL (PRIMARY) HYPERTENSION 05/20/2016 HIEU KAY MD Ot I25.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 05/20/2016 HIEU KAY MD Ot I49.1 ATRIAL PREMATURE DEPOLARIZATION 05/20/2016 HIEU KAY MD Ot Z79.4 SENIOR CARE (CURRENT) USE OF INSULIN 05/20/2016 OSAMNY ALDRICH Ot 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 05/20/2016 OSMANY ALDRICH Ot E11.9 TYPE 2 DIABETES MELLITUS WITHOUT COMPLIC 05/20/2016 OSMANY ALDRICH Ot F41.9 ANXIETY DISORDER, UNSPECIFIED 05/20/2016 OSMANY ALDRICH Ot I25.10 ATHSCL HEART DISEASE OF [place] CORONARY 05/20/2016 OSMANY ALDRICH Ot I50.9 HEART FAILURE, UNSPECIFIED 05/20/2016 OSMANY ALDRICH Ot N40.0 BENIGN PROSTATIC HYPERPLASIA WITHOUT LOW 05/20/2016 OSMANY ALDRICH Ot Z79.4 SENIOR CARE (CURRENT) USE OF INSULIN 05/20/2016 OSMANY ALDRICH Ot Z79.899 OTHER SENIOR CARE (CURRENT) DRUG THERAPY 05/20/2016 OSMANY ALDRICH Ot Z87.891 PERSONAL HISTORY OF NICOTINE DEPENDENCE 05/20/2016 OSMANY ALDRICH Ot Z95.1 PRESENCE OF AORTOCORONARY BYPASS GRAFT 05/21/2016 IVETH MORAN MD, Ot G20 PARKINSON'S DISEASE 06/12/2016 IVETH MORAN MD, Ot G20 PARKINSON'S DISEASE Procedures Code Description Performed By Performed On 45.13 OTHER ENDOSCOPY OF INTEST 09/25/2013 45.23 COLONOSCOPY 09/25 Results Test Result Range [id number] - 05/20/16 09:14 Serum or plasma urea nitrogen measurement (mass/volume) 19 mg/dL 7-18 Serum or plasma creatinine measurement (mass/volume) 1.11 mg /dL 0.60-1.30 Serum or plasma urea nitrogen/creatinine mass ratio 17 NRG Serum or plasma creatinine measurement with calculation of estimated glomerular filtration rate > NRG Complete blood count (CBC) with automated white blood cell (WBC) differential - 09/23/16 19:30 Blood leukocytes automated count (number/volume) 8.1 10*3/ uL 4.3-11.0 Blood erythrocytes automated count (number/volume) 4.76 10*6 /uL 4.35-5.85 Venous blood hemoglobin measurement (mass/volume) 14.0 g/dL 13.3-17.7 Blood hematocrit (volume fraction) 41 % 40-54 Automated erythrocyte mean corpuscular volume 86 [foz_us] 80-99 Automated erythrocyte mean corpuscular hemoglobin (mass per erythrocyte) 29 pg 25-34 Automated erythrocyte mean corpuscular hemoglobin concentration measurement ( mass/volume) 34 g/dL 32-36 Automated erythrocyte distribution width ratio 13.4 % 10.0-14.5 Automated blood platelet count (count/volume) 209 10*3/uL 130-400 Automated blood platelet mean volume measurement 10.7 [foz_ us] 7.4-10.4 Automated blood neutrophils/100 leukocytes 68 % 42-75 Automated blood lymphocytes/100 leukocytes 20 % 12-44 Blood monocytes/100 leukocytes 9 % 0-12 Automated blood eosinophils/100 leukocytes 3 % 0-10 Automated blood basophils/100 leukocytes 1 % 0-10 Blood neutrophils automated count (number/volume) 5.5 10*3 1.8-7.8 Blood lymphocytes automated count (number/volume) 1.6 10*3 1.0-4.0 Blood monocytes automated count (number/volume) 0.7 10*3 0.0-1.0 Automated eosinophil count 0.3 10*3/uL 0.0-0.3 Automated blood basophil count (count/volume) 0.1 10*3/uL 0.0-0.1 PT panel in platelet poor plasma by coagulation assay - 09/23/16 19:30 Prothrombin time (PT) in platelet poor plasma by coagulation assay 12.9 s 12.2-14.7 INR in platelet poor plasma or blood by coagulation assay 1.0 0.8-1.4 Activated partial thromboplastin time (aPTT) in platelet poor plasma bycoagulation assay - 09/23/16 19:30 Activated partial thromboplastin time (aPTT) in platelet poor plasma bycoagulation assay 27 s 24-35 Comprehensive metabolic panel - 09/23/16 19:30 Serum or plasma sodium measurement (moles/volume) 143 mmol/ L 135-145 Serum or plasma potassium measurement (moles/volume) 3.8 mmol/L 3.6-5.0 Serum or plasma chloride measurement (moles/volume) 105 mmol /L 98-107 Carbon dioxide 21 mmol/L 21-32 Serum or plasma anion gap determination (moles/volume) 17 mmol/L 5-14 Serum or plasma urea nitrogen measurement (mass/volume) 20 mg/dL 7-18 Serum or plasma creatinine measurement (mass/volume) 1.09 mg /dL 0.60-1.30 Serum or plasma urea nitrogen/creatinine mass ratio 18 0-20 Serum or plasma creatinine measurement with calculation of estimated glomerular filtration rate > NRG Serum or plasma glucose measurement (mass/volume) 213 mg/dL 70-105 Serum or plasma calcium measurement (mass/volume) 9.3 mg/dL 8.5-10.1 Serum or plasma total bilirubin measurement (mass/volume) 0.7 mg/dL 0.1-1.0 Serum or plasma alkaline phosphatase measurement (enzymatic activity/volume) 48 U/L 40-136 Serum or plasma aspartate aminotransferase measurement (enzymatic activity/ volume) 25 U/L 5-34 Serum or plasma alanine aminotransferase measurement (enzymatic activity/volume ) 8 U/L 0-55 Serum or plasma protein measurement (mass/volume) 6.8 g/dL 6.4-8.2 Serum or plasma albumin measurement (mass/volume) 3.7 g/dL 3.2-4.5 Magnesium - 09/23/16 19:30 Magnesium 1.9 mg/dL 1.8-2.4 Serum or plasma creatine kinase measurement (enzymatic activity/volume) - 09/23 19:30 Serum or plasma creatine kinase measurement (enzymatic activity/volume) 245 U/L 30-200 Serum or plasma creatine kinase MB measurement (enzymatic activity/volume) - 19:30 Serum or plasma creatine kinase MB measurement (enzymatic activity/volume) 5.4 ng/mL <6.6 Serum or plasma troponin i.cardiac measurement (mass/volume) - 09/23/16 19:30 Serum or plasma troponin i.cardiac measurement (mass/volume) < ng/mL <0.30 Serum or plasma thyrotropin measurement by detection limit <=0.05 miu/l (units/ volume) - 09/23/16 19:30 Serum or plasma thyrotropin measurement by detection limit <=0.05 miu/l (units/ volume) 1.36 u[iU]/mL 0.35-4.94 Serum or plasma lithium measurement (moles/volume) - 09/23/16 19:30 BNP level 32.0 pg/mL <100.0 Complete urinalysis with reflex to culture - 09/23/16 20:39 Urine color determination YELLOW NRG Urine clarity determination CLEAR NRG Urine pH measurement by test strip 5 5- 9 Specific gravity of urine by test strip 1.025 1.016-1.022 Urine protein assay by test strip, semi-quantitative 4+ NEGATIVE Urine glucose detection by automated test strip 3+ NEGATIVE Erythrocytes detection in urine sediment by light microscopy 1+ NEGATIVE Urine ketones detection by automated test strip 1+ NEGATIVE Urine nitrite detection by test strip NEGATIVE NEGATIVE Urine total bilirubin detection by test strip NEGATIVE NEGATIVE Urine urobilinogen measurement by automated test strip (mass/volume) NORMAL NORMAL Urine leukocyte esterase detection by dipstick 2+ NEGATIVE Automated urine sediment erythrocyte count by microscopy (number/high power field) [HPF] NRG Automated urine sediment leukocyte count by microscopy (number/high power field ) TNTC NRG Bacteria detection in urine sediment by light microscopy FEW NRG Squamous epithelial cells detection in urine sediment by light microscopy 10-25 NRG Crystals detection in urine sediment by light microscopy NONE NRG Casts detection in urine sediment by light microscopy NONE NRG Mucus detection in urine sediment by light microscopy NEGATIVE NRG Complete urinalysis with reflex to culture YES NRG Bacterial urine culture - 09/23/16 20:39 Bacterial urine culture [id number] NRG COLONY COUNT 10,000/ML - 100,000/ML NRG FTX;REPORTABLE SENSITIVITY REPORTED 09/25/16 9:45 NRG Bacterial susceptibility panel - 09/23/16 20:39 Gentamicin susceptibility test by minimum inhibitory concentration S NRG Vancomycin susceptibility test by minimum inhibitory concentration 1 NRG Levofloxacin susceptibility test by minimum inhibitory concentration 0.5 NRG Tetracycline susceptibility test by minimum inhibitory concentration >= NRG Ampicillin susceptibility test by minimum inhibitory concentration <= NRG Nitrofurantoin susceptibility test by minimum inhibitory concentration <= NRG Linezolid susceptibility test by minimum inhibitory concentration 2 NRG Bacterial blood culture - 09/23/16 21:34 Bacterial blood culture NG NRG Blood lactic acid measurement (moles/volume) - 09/23/16 21:53 Blood lactic acid measurement (moles/volume) 3.88 mmol/L 0.50-2.00 Bacterial blood culture - 09/23/16 21:53 Bacterial blood culture NG NRG Capillary blood glucose measurement by glucometer (mass/volume) - 09/23/16 22: 05 Capillary blood glucose measurement by glucometer (mass/volume) 245 mg/dL 70-110 Serum or plasma lactate measurement (moles/volume) - 09/23/16 23:50 Serum or plasma lactate measurement (moles/volume) 2.07 mmol /L 0.50-2.00 Serum or plasma troponin i.cardiac measurement (mass/volume) - 09/24/16 01:30 Serum or plasma troponin i.cardiac measurement (mass/volume) < ng/mL <0.30 Complete blood count (CBC) with automated white blood cell (WBC) differential - 09/24/16 03:50 Blood leukocytes automated count (number/volume) 7.9 10*3/ uL 4.3-11.0 Blood erythrocytes automated count (number/volume) 4.46 10*6 /uL 4.35-5.85 Venous blood hemoglobin measurement (mass/volume) 13.2 g/dL 13.3-17.7 Blood hematocrit (volume fraction) 38 % 40-54 Automated erythrocyte mean corpuscular volume 86 [foz_us] 80-99 Automated erythrocyte mean corpuscular hemoglobin (mass per erythrocyte) 30 pg 25-34 Automated erythrocyte mean corpuscular hemoglobin concentration measurement ( mass/volume) 35 g/dL 32-36 Automated erythrocyte distribution width ratio 13.2 % 10.0-14.5 Automated blood platelet count (count/volume) 181 10*3/uL 130-400 Automated blood platelet mean volume measurement 10.2 [foz_ us] 7.4-10.4 Automated blood neutrophils/100 leukocytes 65 % 42-75 Automated blood lymphocytes/100 leukocytes 23 % 12-44 Blood monocytes/100 leukocytes 8 % 0-12 Automated blood eosinophils/100 leukocytes 3 % 0-10 Automated blood basophils/100 leukocytes 1 % 0-10 Blood neutrophils automated count (number/volume) 5.1 10*3 1.8-7.8 Blood lymphocytes automated count (number/volume) 1.8 10*3 1.0-4.0 Blood monocytes automated count (number/volume) 0.7 10*3 0.0-1.0 Automated eosinophil count 0.3 10*3/uL 0.0-0.3 Automated blood basophil count (count/volume) 0.1 10*3/uL 0.0-0.1 Comprehensive metabolic panel - 09/24/16 03:50 Serum or plasma sodium measurement (moles/volume) 143 mmol/ L 135-145 Serum or plasma potassium measurement (moles/volume) 3.2 mmol/L 3.6-5.0 Serum or plasma chloride measurement (moles/volume) 106 mmol /L 98-107 Carbon dioxide 25 mmol/L 21-32 Serum or plasma anion gap determination (moles/volume) 12 mmol/L 5-14 Serum or plasma urea nitrogen measurement (mass/volume) 15 mg/dL 7-18 Serum or plasma creatinine measurement (mass/volume) 0.80 mg /dL 0.60-1.30 Serum or plasma urea nitrogen/creatinine mass ratio 19 0-20 Serum or plasma creatinine measurement with calculation of estimated glomerular filtration rate > NRG Serum or plasma glucose measurement (mass/volume) 170 mg/dL 70-105 Serum or plasma calcium measurement (mass/volume) 8.7 mg/dL 8.5-10.1 Serum or plasma total bilirubin measurement (mass/volume) 0.7 mg/dL 0.1-1.0 Serum or plasma alkaline phosphatase measurement (enzymatic activity/volume) 45 U/L 40-136 Serum or plasma aspartate aminotransferase measurement (enzymatic activity/ volume) 17 U/L 5-34 Serum or plasma alanine aminotransferase measurement (enzymatic activity/volume ) 9 U/L 0-55 Serum or plasma protein measurement (mass/volume) 5.8 g/dL 6.4-8.2 Serum or plasma albumin measurement (mass/volume) 3.4 g/dL 3.2-4.5 Encounters ACCT No. Visit Date/Time Discharge Status Pt. Type Provider Facility Loc./Unit Complaint [id number] 09/23/2016 21:15:00 2016 10:15:00 DIS Inpatient MALACHI DAVEY, AHSAN Shipman [facility] ICU SYNCOPAL EPISODE,MILD DEHYDRATION,UTI [id number] 01/10/2016 13:38:00 2016 00:01:00 DIS Outpatient OSMANY ALDRICH [facility] ONC [id number] 12/26/2014 13:48:00 2014 00:01:00 DIS Outpatient OSMANY ALDRICH [facility] ONC [id number] 10/21/2014 11:39:00 2014 00:01:00 DIS Outpatient HIEU KAY MD [facility] CR STATUS POST ACB [id number] 10/03/2014 11:54:00 2014 00:01:00 DIS Outpatient HIEU KAY MD [facility] CR STATUS POST ACB [id number] 05/26/2014 13:16:00 2014 00:01:00 DIS Outpatient OSMANY ALDRICH [facility] ONC [id number] 05/25/2014 08:00:00 2014 23:59:59 CLS Outpatient HIEU KAY MD [facility] CARD CAD,HTN,HLP [id number] 05/05/2014 09:47:00 2014 23:59:59 CLS Outpatient HIEU KAY MD [facility] CARD CAD,HTN,HLP [id number] 10/13/2013 08:26:00 2013 23:59:59 CLS Outpatient AHSAN LY MD [facility] LAB ANEMIA [id number] 09/24/2013 18:05:00 2013 11:34:00 DIS Inpatient AHSAN LY MD [facility] CSD RECTAL BLEED [id number] 09/23/2013 14:56:00 2013 12:55:00 DIS Inpatient AHSAN LY MD [facility] ICU RECTAL HEMORRHAGE, ABD PAIN, HYPOKALEMIA [id number] 09/17/2013 06:43:00 2013 10:10:00 DIS Outpatient AHSAN LY MD [facility] SDC SCREENING [id number] 09/16/2013 07:15:00 2013 23:59:59 CLS Outpatient AHSAN LY MD [facility] PREOP SCREENING [id number] 05/20/2016 09:02:00 ACT Outpatient IVETH MORAN MD [facility] RAD PARKINSONS [id number] 04/10/2016 00:13:00 PEN Preadmit OSMANY ALDRICH [facility] ONC [id number] 02/14/2016 11:01:00 ACT Outpatient HIEU KAY MD [facility] CARD APC,CAD,HTN,IDDM [id number] 01/03/2016 08:29:00 ACT Outpatient HIEU KAY MD [facility] RAD APC,CAD,HTN,IDDM [id number] 07/11/2014 07:50:00 Document Registration [id number] 07/11/2014 07:50:00 Document Registration
--- OUTSIDE RECORDS SUMMARY | 2016-09-26 13:06 | XMS REPORT ---
Author AMANDA Pardo [facility] eClinicalWorks Address Unknown Phone Unavailable Care Team Providers Care Fire Watcher Name Role Phone AMANDA CORTES CP Unavailable Allergies No Known Allergies Problems Problem Type Condition Code Onset Dates Condition Status Assessment Encounter for immunization Z23 Active Medications No Known Medications Procedures Procedure Coding System Code Date SINGLE IMMUNIZATION ADMIN CPT-4 92844 Mar 06, 2015 PCV 13 CPT-4 54408 Mar 06, 2015 Results No Known Results Immunizations Vaccine Administration Date PCV 13 Mar 06, 2015 Summary Purpose eClinicalWorks Submission
--- OUTSIDE RECORDS SUMMARY | 2016-09-26 13:51 | XMS REPORT | Continuity of Care Document ---
Author Author [facility] Organization [facility] Address Unknown Phone Unavailable Allergies Active Description Code Type Severity Reaction Onset Reported/Identified Relationship to Patient Clinical Status Yes No Known Drug Allergies [id number] Drug Allergy Unknown N/ A 09/17/2013 Medications [...] LY MD Ot 414.01 CORONARY ATHEROSCLEROSIS OF [place] CORON 09/24/2013 AHSAN LY MD Ot 998.11 [...] LY MD Ot 414.01 CORONARY ATHEROSCLEROSIS OF [place] CORON 09/30/2013 MALACHI DAVEY, AHSAN Shipman Ot [...] NOS 06/01/2014 Ot 414.01 CORONARY ATHEROSCLEROSIS OF [place] CORON 06/01/2014 Ot 427.69 PREMATURE BEATS NEC [...] 250.00 12/19/2014 OSMANY ALDRICH Ot 300.00 12/19/2014 SOMANY ALDRICH Ot 414.00 12/19/2014 OSMANY ALDRICH Ot [...] N Ot I25.10 ATHSCL HEART DISEASE OF [place] CORONARY 01/01/2016 OSMANY ALDRICH N Ot I50.9 HEART FAILURE, UNSPECIFIED 01/01/2016 OSMANY ALDRICH N Ot N40.0 ENLARGED PROSTATE WITHOUT LOWER URINARY 01/01/2016 OSMANY ALDRICH N Ot V15.82 01/01/2016 OSMANY ALDRICH N Ot V45.81 01/01/2016 OSMANY ALDRICH N Ot V58.67 01/01/2016 OSMANY ALDRICH N Ot V58.69 01/01/2016 OSMANY ALDRICH Ot Z79.4 HEALTH EDUCATION COORDINATOR (CURRENT) USE OF INSULIN 01/01/2016 OSMANY ALDRICH [...] MD Ot I25.10 ATHSCL HEART DISEASE OF [place] CORONARY 01/25/2016 HIEU KAY MD Ot I49.1 ATRIAL PREMATURE DEPOLARIZATION 01/25/2016 HIEU KAY MD Ot K80.20 CALCULUS OF GALLBLADDER W/O CHOLECYSTITI 01/25/2016 HIEU KAY MD, Ot Z79.4 HEALTH EDUCATION COORDINATOR (CURRENT) USE OF INSULIN 02/14/2016 HIEU KAY [...] 02/15/2016 RAHUL MD, BASHAR J Ot Z79.4 [facility] (CURRENT) USE OF INSULIN 02/27/2016 VALDEMAROSMANY Ot 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 02/27/2016 OSMANY ALDRICH Ot E11.9 TYPE 2 DIABETES MELLITUS WITHOUT COMPLIC 02/27/2016 OSMANY ALDRICH Ot F41.9 ANXIETY DISORDER, UNSPECIFIED 02/27/2016 OSMANY ALDRICH Ot I25.10 ATHSCL HEART DISEASE OF [place] CORONARY 02/27/2016 OSMANY ALDRICH Ot I50.9 HEART FAILURE, UNSPECIFIED 02/27/2016 OSMANY ALDRICH Ot N40.0 ENLARGED PROSTATE WITHOUT LOWER URINARY 02/27/2016 OSMANY ALDRICH Ot Z79.4 [facility] (CURRENT) USE OF INSULIN 02/27/2016 OSMANY ALDRICH Ot Z79.899 OTHER HEALTH EDUCATION COORDINATOR (CURRENT) DRUG THERAPY 02/27/2016 OSMANY ALDRICH Ot [...] DEPOLARIZATION 03/06/2016 HIEU KAY MD Ot Z79.4 [facility] (CURRENT) USE OF INSULIN 04/09/2016 OSMANY ALDRICH Ot 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 04/09/2016 OSMANY ALDRICH Ot E11.9 TYPE 2 DIABETES MELLITUS WITHOUT COMPLIC 04/09/2016 OSMANY ALDRICH Ot F41.9 ANXIETY DISORDER, UNSPECIFIED 04/09/2016 OSMANY ALDRICH Ot I25.10 ATHSCL HEART DISEASE OF [place] CORONARY 04/09/2016 VALDEMAR, BOBAN N Ot I50.9 HEART FAILURE, UNSPECIFIED 04/09/2016 OSMANY ALDRICH Ot N40.0 BENIGN PROSTATIC HYPERPLASIA WITHOUT LOW 04/09/2016 OSMANY ALDRICH Ot Z79.4 [facility] (CURRENT) USE OF INSULIN 04/09/2016 OSMANY ALDRICH N Ot Z79.899 OTHER [facility] (CURRENT) DRUG THERAPY 04/09/2016 OSMANY ALDRICH Ot Z87.891 PERSONAL HISTORY OF NICOTINE DEPENDENCE 04/09/2016 OSMANY ALDRICH Ot Z95.1 PRESENCE OF AORTOCORONARY BYPASS GRAFT 04/10/2016 OSMANY ALDRICH N Ot 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 04/10/2016 OSMANY ALDRICH Ot E11.9 TYPE 2 DIABETES MELLITUS WITHOUT COMPLIC 04/10/2016 OSMANY ALDRICH Ot F41.9 ANXIETY DISORDER, UNSPECIFIED 04/10/2016 OSMANY ALDRICH Ot I25.10 ATHSCL HEART DISEASE OF [place] CORONARY 04/10/2016 OSMANY ALDRICH Ot I50.9 HEART FAILURE, UNSPECIFIED 04/10/2016 OSMANY ALDRICH Ot N40.0 BENIGN PROSTATIC HYPERPLASIA WITHOUT LOW 04/10/2016 OSMANY ALDRICH Ot Z79.4 HEALTH EDUCATION COORDINATOR (CURRENT) USE OF INSULIN 04/10/2016 OSMANY ALDRICH Ot Z79.899 OTHER [facility] (CURRENT) DRUG THERAPY 04/10/2016 OSMANY ALDRICH Ot [...] MD Ot I25.10 ATHSCL HEART DISEASE OF [place] CORONARY 05/20/2016 HIEU KAY MD Ot I49.1 ATRIAL PREMATURE DEPOLARIZATION 05/20/2016 HIEU KAY MD Ot K80.20 CALCULUS OF GALLBLADDER W/O CHOLECYSTITI 05/20/2016 HIEU KAY MD Ot Z79.4 HEALTH EDUCATION COORDINATOR (CURRENT) USE OF INSULIN 05/20/2016 HIEU KAY [...] DEPOLARIZATION 05/20/2016 HIEU KAY MD Ot Z79.4 [facility] (CURRENT) USE OF INSULIN 05/20/2016 OSMANY ALDRICH Ot 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 05/20/2016 OSMANY ALDRICH Ot E11.9 TYPE 2 DIABETES MELLITUS WITHOUT COMPLIC 05/20/2016 OSMANY ALDRICH Ot F41.9 ANXIETY DISORDER, UNSPECIFIED 05/20/2016 OSMANY ALDRICH Ot I25.10 ATHSCL HEART DISEASE OF [place] CORONARY 05/20/2016 OSMANY ALDRICH Ot I50.9 HEART FAILURE, UNSPECIFIED 05/20/2016 OSMANY ALDRICH Ot N40.0 BENIGN PROSTATIC HYPERPLASIA WITHOUT LOW 05/20/2016 OSMANY ALDRICH Ot Z79.4 [facility] (CURRENT) USE OF INSULIN 05/20/2016 OSMANY ALDRICH Ot Z79.899 OTHER [facility] (CURRENT) DRUG THERAPY 05/20/2016 OSMANY ALDRICH Ot Z87.891 PERSONAL HISTORY OF NICOTINE DEPENDENCE 05/20/2016 OSMANY ALDRICH Ot Z95.1 PRESENCE OF AORTOCORONARY BYPASS GRAFT 05/21/2016 IVETH MORAN MD, Ot G20 PARKINSON'S DISEASE 06/12/2016 IVETH MORAN MD, Ot G20 PARKINSON'S DISEASE Procedures Code Description Performed By Performed On 45.13 OTHER ENDOSCOPY OF INTEST 09/25/2013 45.23 COLONOSCOPY 09/25 Results Test Result Range [id number] - 05/20/16 09:14 Serum or plasma urea [...] culture - 09/23/16 20:39 Bacterial urine culture [id number] NRG COLONY COUNT 10,000/ML - 100,000/ML NRG [...] Status Pt. Type Provider Facility Loc./Unit Complaint [id number] 09/23/2016 21:15:00 2016 10:15:00 DIS Inpatient MALACHI DAVEY, AHSAN Shipman [facility] ICU SYNCOPAL EPISODE,MILD DEHYDRATION,UTI [id number] 01/10/2016 13:38:00 2016 00:01:00 DIS Outpatient OSMANY ALDRICH [facility] ONC [id number] 12/26/2014 13:48:00 2014 00:01:00 DIS Outpatient OSMANY ALDRICH [facility] ONC [id number] 10/21/2014 11:39:00 2014 00:01:00 DIS Outpatient HIEU KAY MD [facility] CR STATUS POST ACB [id number] 10/03/2014 11:54:00 2014 00:01:00 DIS Outpatient HIEU KAY MD [facility] CR STATUS POST ACB [id number] 05/26/2014 13:16:00 2014 00:01:00 DIS Outpatient OSMANY ALDRICH [facility] ONC [id number] 05/25/2014 08:00:00 2014 23:59:59 CLS Outpatient HIEU KAY MD [facility] CARD CAD,HTN,HLP [id number] 05/05/2014 09:47:00 2014 23:59:59 CLS Outpatient HIEU KAY MD [facility] CARD CAD,HTN,HLP [id number] 10/13/2013 08:26:00 2013 23:59:59 CLS Outpatient AHSAN LY MD [facility] LAB ANEMIA [id number] 09/24/2013 18:05:00 2013 11:34:00 DIS Inpatient AHSAN LY MD [facility] CSD RECTAL BLEED [id number] 09/23/2013 14:56:00 2013 12:55:00 DIS Inpatient AHSAN LY MD [facility] ICU RECTAL HEMORRHAGE, ABD PAIN, HYPOKALEMIA [id number] 09/17/2013 06:43:00 2013 10:10:00 DIS Outpatient AHSAN LY MD [facility] SDC SCREENING [id number] 09/16/2013 07:15:00 2013 23:59:59 CLS Outpatient AHSAN LY MD [facility] PREOP SCREENING [id number] 05/20/2016 09:02:00 ACT Outpatient IVETH MORAN MD [facility] RAD PARKINSONS [id number] 04/10/2016 00:13:00 PEN Preadmit OSMANY ALDRICH [facility] ONC [id number] 02/14/2016 11:01:00 ACT Outpatient HIEU KAY MD [facility] CARD APC,CAD,HTN,IDDM [id number] 01/03/2016 08:29:00 ACT Outpatient HIEU KAY MD [facility] RAD APC,CAD,HTN,IDDM [id number] 07/11/2014 07:50:00 Document Registration [id number] 07/11/2014 07:50:00 Document Registration
== END 2016-09-24 10:15 | disposition home or self-care (01) ==
LOC: EDUNIT# 19:24 → ER 19:26 → ICU 21:15
PROVIDERS: ADMIT Internal Medicine; ATTEND Internal Medicine
DX: R55 Syncope and collapse (principal); N39.0 Urinary tract infection, site not specified; E11.9 Type 2 diabetes mellitus without complications; I71.4 Abdominal aortic aneurysm, without rupture; I25.10 Atherosclerotic heart disease of native coronary artery without angina pectoris; I10 Essential (primary) hypertension; G47.30 Sleep apnea, unspecified; N40.0 Benign prostatic hyperplasia without lower urinary tract symptoms; C91.40 Hairy cell leukemia not having achieved remission; R09.02 Hypoxemia; B95.2 Enterococcus as the cause of diseases classified elsewhere; Z79.4 Long term (current) use of insulin; Z95.1 Presence of aortocoronary bypass graft; Z95.5 Presence of coronary angioplasty implant and graft
CPT/HCPCS: 36415; 70450; 71010; 80053; 81000; 82550; 82553; 82962; 83605; 83735; 83880; 84443; 84484; 85025; 85610; 85730; 87040; 87077; 87088; 87186; 93005; 93041; G0378

== ENCOUNTER 2017-01-09 08:59 | Outpatient (RCR) | payer MEDICARE, OTHER ==
[~2017-01-09 08:59] MED LIST changes: +PENI500T PO
[2017-01-09 09:12] LABS: BASOPHILS # (AUTO) 0.1 10^3/uL (0.0-0.1); BASOPHILS % (AUTO) 1 % (0-10); EOSINOPHILS # (AUTO) 0.3 10^3/uL (0.0-0.3); EOSINOPHILS % (AUTO) 4 % (0-10); HEMATOCRIT 45 % (40-54); HEMOGLOBIN 15.6 G/DL (13.3-17.7); LYMPHOCYTES # (AUTO) 1.5 X 10^3 (1.0-4.0); LYMPHOCYTES % (AUTO) 18 % (12-44); MEAN CORPUSCULAR HEMOGLOBIN 30 PG (25-34); MEAN CORPUSCULAR HGB CONC 35 G/DL (32-36); MEAN CORPUSCULAR VOLUME 87 FL (80-99); MEAN PLATELET VOLUME 10.6 FL (7.4-10.4); MONOCYTES # (AUTO) 0.7 X 10^3 (0.0-1.0); MONOCYTES % (AUTO) 9 % (0-12); NEUTROPHILS # (AUTO) 5.6 X 10^3 (1.8-7.8); NEUTROPHILS % (AUTO) 69 % (42-75); PLATELET COUNT 211 10^3/uL (130-400); RED BLOOD COUNT 5.13 10^6/uL (4.35-5.85); RED CELL DISTRIBUTION WIDTH 12.9 % (10.0-14.5); WHITE BLOOD COUNT 8.1 10^3/uL (4.3-11.0)
[2017-01-09 09:35] LABS: ALANINE AMINOTRANSFERASE 12 U/L (0-55); ALBUMIN 3.9 GM/DL (3.2-4.5); ALKALINE PHOSPHATASE 60 U/L (40-136); BILIRUBIN,TOTAL 0.8 MG/DL (0.1-1.0); BUN/CREATININE RATIO 21; CALCIUM 9.5 MG/DL (8.5-10.1); CARBON DIOXIDE 26 MMOL/L (21-32); CHLORIDE 102 MMOL/L (98-107); CREATININE SERUM 1.09 MG/DL (0.60-1.30); GFR ESTIMATED > 60; GLUCOSE 379 MG/DL (70-105); POTASSIUM 3.5 MMOL/L (3.6-5.0); SODIUM 140 MMOL/L (135-145); TOTAL PROTEIN 6.9 GM/DL (6.4-8.2)
== END 2017-04-09 | disposition home or self-care (01) ==
LOC: ONC 08:59
PROVIDERS: ATTEND Internal Medicine Hematology & Oncology
DX: C91.40 Hairy cell leukemia not having achieved remission (principal); I50.9 Heart failure, unspecified; I25.10 Atherosclerotic heart disease of native coronary artery without angina pectoris; E11.9 Type 2 diabetes mellitus without complications; F41.9 Anxiety disorder, unspecified; N40.0 Benign prostatic hyperplasia without lower urinary tract symptoms; Z79.899 Other long term (current) drug therapy; Z79.4 Long term (current) use of insulin; Z95.1 Presence of aortocoronary bypass graft; Z87.891 Personal history of nicotine dependence
CPT/HCPCS: 36415; 80053; 83615; 85025; 99213

== ENCOUNTER → 2017-01-27 | Outpatient (CLI) | payer MEDICARE, OTHER | LOC: CARD 11:57 | PROVIDERS: ATTEND Physician Assistant | DX: I25.810 Atherosclerosis of coronary artery bypass graft(s) without angina pectoris (principal); I10 Essential (primary) hypertension; E78.2 Mixed hyperlipidemia; G47.33 Obstructive sleep apnea (adult) (pediatric) | CPT/HCPCS: 93306 ==

== ENCOUNTER 2017-07-18 10:21 | Outpatient (RCR) | payer MEDICARE, OTHER ==
[2017-08-25] MEDS ORDERED: FISH1CAP15 PO (13:32)
[2017-08-25] MEDS ORDERED: CLON0.1T PO (13:32)
[2017-08-25] MEDS ORDERED: PRAM1TAB2 PO (13:32)
[2017-08-25] MEDS ORDERED: INSU100V16 SQ (13:32)
[2017-08-25] MEDS ORDERED: AMLO10TA2 PO (13:32)
[2017-08-25] MEDS ORDERED: CARB1TAB6 PO (13:32)
[2017-08-25] MEDS ORDERED: TAMS0.4C2 PO (13:32)
[2017-08-25] MEDS ORDERED: LISI1TAB10 PO (13:32)
[2017-08-25] MEDS ORDERED: CARB1TAB PO (13:32)
[2017-08-25] MEDS ORDERED: MELO7.5T46 PO (13:32)
[2017-08-25] MEDS ORDERED: INSU100V6 SQ ×2 (13:32)
[2017-08-25] MEDS ORDERED: CHOL10003 PO (13:32)
[2017-08-25] MEDS ORDERED: METF500T5 PO (13:32)
[2017-08-25] MEDS ORDERED: METO100T12 PO (13:32)
[2017-08-25] MEDS ORDERED: ASPI-999 PO (13:32)
[2017-08-25] MEDS ORDERED: ROSU20TA31 PO (13:32)
[2017-09-08] MEDS ORDERED: ACHD5005 PO (12:25)
== END 2017-10-16 | disposition home or self-care (01) ==
LOC: CARD 10:21
PROVIDERS: ATTEND Physician Assistant
DX: I49.1 Atrial premature depolarization (principal); I25.810 Atherosclerosis of coronary artery bypass graft(s) without angina pectoris; I10 Essential (primary) hypertension; E78.2 Mixed hyperlipidemia
CPT/HCPCS: 93225; 93226

== ENCOUNTER → 2017-08-21 | Outpatient (CLI) | payer MEDICARE, OTHER ==
[~2017-08-21] MED LIST changes: +ACHD5005 PO; +AMLO10TA2 PO; +ASPI-999 PO; +CARB1TAB PO; +CARB1TAB6 PO; +CHOL10003 PO; +CLON0.1T PO; +INSU100V16 SQ; +INSU100V6 SQ; +LISI1TAB10 PO; +MELO7.5T46 PO; +METF500T5 PO; +METO100T12 PO; +PRAM1TAB2 PO; +ROSU20TA30 PO; +TAMS0.4C2 PO
--- NOTE | 2017-08-21 09:30 | Diagnostic Imaging Report ---
PROCEDURE: US Gallbladder. TECHNIQUE: Multiple real-time grayscale images were obtained over the right upper quadrant in various projections. INDICATION: Right upper quadrant pain. FINDINGS: The liver is enlarged 22 cm. There is increased echogenicity consistent with hepatic steatosis. No discrete liver mass is identified. The gallbladder is without stones or sludge. No wall thickening or biliary ductal dilatation is identified. The visualized pancreas is unremarkable. Right kidney does contain approximately 2.9 cm cyst. No calculi or hydronephrosis is seen. There is no ascites. IMPRESSION: 1. Hepatomegaly and hepatic steatosis. 2. No evidence of cholelithiasis or acute cholecystitis. 3. Right renal cyst. Dictated by: Dictated on workstation # [id number]
== END ==
LOC: RAD 08:30
PROVIDERS: ATTEND Surgery
DX: K76.0 Fatty (change of) liver, not elsewhere classified (principal); N28.1 Cyst of kidney, acquired
CPT/HCPCS: 76705

== ENCOUNTER 2017-08-25 06:17 | Outpatient (CLI) | payer MEDICARE, OTHER ==
[~2017-08-25] VITALS: Ht 182.9 cm; Wt 99.8 kg
[~2017-08-25 06:17] MED LIST changes: -ACHD5005 PO; -AMLO10TA2 PO; -ASPI-999 PO; -CARB1TAB PO; -CARB1TAB6 PO; -CHOL10003 PO; -CLON0.1T PO; -INSU100V16 SQ; -INSU100V6 SQ; -LISI1TAB10 PO; -MELO7.5T46 PO; -METF500T5 PO; -METO100T12 PO; -PRAM1TAB2 PO; -ROSU20TA30 PO; -TAMS0.4C2 PO
[2017-08-25] MEDS ORDERED: PRAM1TAB2 PO (13:32)
[2017-08-25] MEDS ORDERED: FISH1CAP15 PO (13:32)
[2017-08-25] MEDS ORDERED: MELO7.5T46 PO (13:32)
[2017-08-25] MEDS ORDERED: CARB1TAB6 PO (13:32)
[2017-08-25] MEDS ORDERED: CLON0.1T PO (13:32)
[2017-08-25] MEDS ORDERED: AMLO10TA2 PO (13:32)
[2017-08-25] MEDS ORDERED: METO100T12 PO (13:32)
[2017-08-25] MEDS ORDERED: INSU100V16 SQ (13:32)
[2017-08-25] MEDS ORDERED: TAMS0.4C2 PO (13:32)
[2017-08-25] MEDS ORDERED: ASPI-999 PO (13:32)
[2017-08-25] MEDS ORDERED: ROSU20TA30 PO (13:32)
[2017-08-25] MEDS ORDERED: INSU100V6 SQ ×2 (13:32)
[2017-08-25] MEDS ORDERED: METF500T5 PO (13:32)
[2017-08-25] MEDS ORDERED: LISI1TAB10 PO (13:32)
[2017-08-25] MEDS ORDERED: CHOL10003 PO (13:32)
[2017-08-25] MEDS ORDERED: CARB1TAB PO (13:32)
[2017-09-08] MEDS ORDERED: ACHD5005 PO (12:25)
== END 2017-08-25 13:39 ==
LOC: PREOP 06:17
PROVIDERS: ATTEND Surgery
DX: Z01.818 Encounter for other preprocedural examination (principal); L98.9 Disorder of the skin and subcutaneous tissue, unspecified; Z85.820 Personal history of malignant melanoma of skin

== ENCOUNTER 2017-09-08 10:14 | Day surgery (SDC) | payer MEDICARE, OTHER ==
[~2017-09-08] VITALS: Ht 182.9 cm; Wt 99.8 kg
[~2017-09-08 10:14] MED LIST changes: +AMLO10TA2 PO; +ASPI-999 PO; +CARB1TAB PO; +CARB1TAB6 PO; +CHOL10003 PO; +CLON0.1T PO; +INSU100V16 SQ; +INSU100V6 SQ; +LISI1TAB10 PO; +MELO7.5T46 PO; +METF500T5 PO; +METO100T12 PO; +PRAM1TAB2 PO; +ROSU20TA30 PO; +TAMS0.4C2 PO
--- OUTSIDE RECORDS SUMMARY | 2017-09-08 10:19 | XMS REPORT | Clinical Summary ---
Author Author [facility] Organization [facility] Address Unknown Phone Unavailable Care Team Providers Care Collar Feller Name Role Phone Kristy Biggs MD PCP Source Comments Some departments are not documenting in the electronic medical record. If you do not see the information that you expected, contact Release of Information in the Health Information Management department at [phone] for further assistance in locating additional records.[facility] Allergies No Known Allergies Current Medications Prescription Sig. Disp. Refills Start End Date Status Date INSULIN Inject 30 Units under the Active GLARGINE,HUM.REC.ANLOG skin. (LANTUS SOLOSTAR SC) insulin aspart (NOVOLOG Inject 5 Units under the Active FLEXPEN) 100 unit/mL skin three times daily injection PEN with meals. metFORMIN (GLUCOPHAGE) Take 1,000 mg by mouth Active 1,000 mg tablet twice daily with meals. metoprolol XL (TOPROL XL) Take 100 mg by mouth Active 100 mg extended release daily. tablet amLODIPine (NORVASC) 10 Take 10 mg by mouth Active mg tablet daily. lisinopril-hydrochlorothi Take 1 tablet by mouth Active azide (PRINZIDE, every morning. ZESTORETIC) 10-12.5 mg tablet pramipexole (MIRAPEX) 1 Take 0.5 mg by mouth Active mg tablet three times daily. ROSUVASTATIN CALCIUM Take 30 mg by mouth. Active (CRESTOR PO) TAMSULOSIN HCL Take 8 mg by mouth. Active (TAMSULOSIN PO) aspirin 81 mg chewable Chew 81 mg by mouth Active tablet daily. Take with food. MULTIVITAMIN PO Take by mouth. Active Cholecalciferol (Vitamin Take by mouth. Active D3) (VITAMIN D) 1,000 unit cap DOCOSAHEXANOIC ACID/EPA Take by mouth. Active (FISH OIL PO) naproxen sodium (ANAPROX) Take 275 mg by mouth Active 275 mg tablet twice daily with meals. Take with food. carbidopa/levodopa Take 2.5 tablets by mouth 225 tablet 1 04/14/19 Active (SINEMET) 25/100 mg three times daily. 18 tabletIndications: Parkinson disease (HCC) Active Problems No known active problems Family History Medical History Relation Name Comments Cancer Brother Cancer Father Cancer Mother Relation Name Status Comments Brother Father Mother Social History Tobacco Use Types Packs/Day Years Used Date Passive Smoke Exposure - Never Smoker Smokeless Tobacco: Never Used Alcohol Use Drinks/Week oz/Week Comments Yes 1/2 per month Sex Assigned at Date Recorded Not on file Last Filed Vital Signs Vital Sign Reading Time Taken Blood Pressure 153/85 12/18/2016 8:17 AM CDT Pulse 66 12/18/2016 8:17 AM CDT Temperature - - Respiratory Rate - - Oxygen Saturation - - Inhaled Oxygen - - Concentration Weight 98.3 kg (216 lb 11.2 oz) 12/18/2016 8:12 AM CDT Height 182.9 cm (6') 12/18/2016 8:12 AM CDT Body Mass Index 29.39 12/18/2016 8:12 AM CDT Plan of Treatment Health Maintenance Due Date Last Done Comments HEPATITIS C SCREENING 1945 PHYSICAL (COMPREHENSIVE) 11/09/1954 EXAM PERTUSSIS VACCINE 11/09/1958 TETANUS VACCINE 11/09/1964 COLORECTAL CANCER 11/09/1997 SCREENING SHINGLES VACCINE 2007 PNEUMONIA (PCV13/PPSV23) 11/09/2012 VACCINES (1 of 2 - PCV13) INFLUENZA VACCINE 01/05/2018 Results Not on filefrom Last 3 Months
--- OUTSIDE RECORDS SUMMARY | 2017-09-08 10:22 | XMS REPORT | Continuity of Care Document ---
Author Author [facility] Organization [facility] Address Unknown Phone Unavailable Allergies Active Description Code Type Severity Reaction Onset Reported/Identified Relationship to Patient Clinical Status Yes No Known Drug Allergies [id number] Drug Allergy Unknown N/A 08/25/2017 Medications There is no data. Problems Date Dx Coded Attending Type Code [...] LY MD Ot 414.01 CORONARY ATHEROSCLEROSIS OF [place] CORON 09/24/2013 AHSAN LY MD Ot 998.11 [...] MD Ot 401.9 HYPERTENSION NOS 09/30/2013 AHSAN YL MD Ot 414.01 CORONARY ATHEROSCLEROSIS OF [place] CORON 09/30/2013 AHSAN LY MD Ot 427.61 ATRIAL PREMATURE BEATS 09/30/2013 AHSAN [...] Miranda Ot 414.00 06/01/2014 RAHUL DAVEY, HIEU Miranda Ot 427.69 06/01/2014 RAHUL DAVEY, HIEU Miranda Ot 272.4 06/01/2014 RAHUL DAVEY, HIEU J Ot 278.00 06/01/2014 RAHUL DAVEY, HIEU Miranda Ot 401.9 06/01/2014 RAHUL DAVEY, HIEU Miranda Ot 414.00 06/01/2014 HIEU KAY MD Ot 427.69 06/01/2014 OSMANY ALDRICH Ot 202.40 06/01/2014 OSMANY ALDRICH Ot 250.00 06/01/2014 OSMANY ALDRICH Ot 300.00 06/01/2014 VALDEMAR BOBSHAWN N Ot 414.00 06/01/2014 VALDEMARGIANSHAWN N Ot 428.0 06/01/2014 VALDEMAR OSMANY N Ot 600.00 06/01/2014 VALDEMARGIAN COSTELLOSHAWN N Ot V15.82 06/01/2014 VALDEMARGIAN COSTELLOSHAWN N Ot V45.81 06/01/2014 VALDEMARGIAN COSTELLOSHAWN N Ot V58.67 06/01/2014 VALDEMARGIAN COSTELLOSHAWN N Ot V58.69 06/01/2014 Ot 202.40 LEUKEMIC RETICULOENDOTHELLOSIS EXTRNDL 06/01/2014 Ot 250.00 DIAB EDSON WO COMPL, TYPE II OR UNSPEC TY 06/01/2014 Ot 272.4 HYPERLIPIDEMIA NEC/NOS 06/01/2014 Ot 401.9 HYPERTENSION NOS 06/01/2014 Ot 414.01 CORONARY ATHEROSCLEROSIS OF [place] CORON 06/01/2014 Ot 427.69 PREMATURE BEATS NEC 06/01/2014 Ot 794.30 ABN CARDIOVASC STUDY NOS 06/01/2014 Ot V45.82 PERCUTANEOUS TRANSLUM CORON ANGIOPLASTY 06/01/2014 Ot V58.67 LONG-TERM ( CURRENT) USE OF INSULIN 06/01/2014 Ot V58.69 OT MED,LT, CURRENT USE 06/02/2014 RAHUL DAVEY, HIEU Miranda Ot 272.4 06/02/2014 RAHUL DAVEY, HIEU Miranda Ot 278.00 06/02/2014 RAHUL DAVEY, HIEU Miranda Ot 401.9 06/02/2014 RAHUL DAVEY, HIEU Miranda Ot 414.00 06/02/2014 HIEU KAY MD Ot 427.69 07/01/2014 VALDEMAROSMANY N Ot 202.40 07/01/2014 VALDEMAROSMANY N Ot 250.00 07/01/2014 VALDEMAROSMANY N Ot 300.00 07/01/2014 VALDEMAR, OSMANY N Ot 414.00 07/01/2014 VALDEMAROSMANY N Ot 428.0 07/01/2014 VALDEMAROSMANY N Ot 600.00 07/01/2014 VALDEMAROSMANY N Ot V15.82 07/01/2014 VALDEMAROSMANY N Ot V45.81 07/01/2014 VALDEMAROSMANY COSTELLO N Ot V58.67 07/01/2014 VALDEMAROSMANY COSTELLO N Ot V58.69 07/11/2014 MALACHI DAVEY, AHSAN Shipman Ot V72.84 07/11/2014 MALACHI DAVEY, AHSAN Shipman Ot 280.0 07/11/2014 MALACHI DAVEY, AHSAN Shipman Ot 578.9 07/11/2014 RAHUL DAVEY, HIEU Miranda Ot 272.4 07/11/2014 RAHUL DAVEY, HIEU Miranda Ot 278.00 07/11/2014 RAHUL DAVEY, HIEU J Ot 401.9 07/11/2014 RAHUL DAVEY, HIEU Miranda Ot 414.00 07/11/2014 RAHUL DAVEY, HIEU Miranda Ot 427.69 07/11/2014 RAHUL DAVEY, HIEU Miranda Ot 272.4 07/11/2014 RAHUL DAVEY, HIEU Miranda Ot 278.00 07/11/2014 RAHUL DAVEY, HIEU Miranda Ot 401.9 07/11/2014 RAHUL DAVEY, HIEU Miranda Ot 414.00 07/11/2014 RAHUL DAVEY, HIEU Miranda Ot 427.69 07/11/2014 OSMANY ALDRICH N Ot 202.40 07/11/2014 VALDEMAR BOBSHAWN N Ot 250.00 07/11/2014 VALDEMAR, BOBSHAWN N Ot 300.00 07/11/2014 VALDEMAR, BOBAN N Ot 414.00 07/11/2014 VALDEMAR, BOBSHAWN N Ot 428.0 07/11/2014 VALDEMAR, BOBSHAWN N Ot 600.00 07/11/2014 VALDEMAR, BOBAN N Ot V15.82 07/11/2014 VALDEMAROSMANY COSTELLO N Ot V45.81 07/11/2014 VALDEMAR, BOBAN N Ot V58.67 07/11/2014 VALDEMAR BOBAN N Ot V58.69 07/11/2014 Ot 240.9 07/14/2014 Ot 240.9 08/24/2014 VALDEMAR, BOBAN N Ot 202.40 LEUKEMIC RETICULOENDOTHELLOSIS EXTRNDL 08/24/2014 VALDEMAR BOBAN N Ot 250.00 DIAB EDSON WO COMPL, TYPE II OR UNSPEC TY 08/24/2014 OSMANY ALDRICH N Ot 300.00 ANXIETY STATE NOS 08/24/2014 OSMANY ALDRICH N Ot 414.00 CORON ATHEROSCLER NOS TYPE VESSEL, NATIV 08/24/2014 OSMANY ALDRICH N Ot 428.0 CONGESTIVE HEART FAILURE NOS 08/24/2014 OSMANY ALDRICH N Ot 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 (BENIGN) 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 08/24/2014 OSMANY ALDRICH Ot V15.82 HISTORY OF TOBACCO USE 08/24/2014 OSMANY ALDRICH Ot V45.81 AORTOCORONARY BYPASS 08/24/2014 OSMANY ALDRICH Ot V58.67 LONG-TERM (CURRENT) USE OF INSULIN 08/24/2014 OSMANY ALDRICH Ot V58.69 OTH MED,LT,CURRENT USE 09/05/2014 HIEU KAY MD Ot V45.81 09/05/2014 HIEU KAY MD Ot V57.89 10/09/2014 HIEU KAY MD Ot V45.81 AORTOCORONARY BYPASS 10/09/2014 HIEU KAY MD Ot V57.89 REHABILITATION PROC NEC 10/14/2014 HIEU KAY MD Ot V45.81 10/14/2014 HIEU KAY MD Ot V57.89 10/14/2014 HIEU KAY MD Ot V45.81 10/14/2014 HIEU KAY MD Ot V57.89 10/14/2014 HIEU KAY MD Ot V45.81 10/14/2014 HIEU KAY MD Ot V57.89 10/14/2014 HIEU KAY MD Ot V45.81 10/14/2014 HIEU KAY MD Ot V57.89 10/17/2014 HIEU KAY MD Ot V45.81 10/17/2014 HIEU KAY MD Ot V57.89 12/02/2014 HIEU KAY MD Ot V45.81 12/02/2014 HIEU KAY MD Ot V57.89 12/19/2014 OSMANY ALDRICH Ot 202.40 12/19/2014 VALDEMAROSMANY COSTELLO Ot 250.00 12/19/2014 OSMANY ALDRICH Ot 300.00 12/19/2014 OSMANY ALDRICH Ot 414.00 12/19/2014 VALDEMAROSMANY COSTELLO Ot 428.0 12/19/2014 VALDEMAROSMANY COSTELLO Ot 600.00 12/19/2014 OSMANY ALDRICH Ot V15.82 [...] 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 01/04/2015 OSMANY ALDRICH Ot V15.82 HISTORY OF TOBACCO USE 01/04/2015 OSMANY ALDRICH N Ot V45.81 AORTOCORONARY BYPASS 01/04/2015 OSMANY ALDRICH Ot V58.67 LONG-TERM (CURRENT) USE OF INSULIN 01/04/2015 OSMANY ALDRICH Ot V58.69 OTH MED,LT,CURRENT USE 01/04/2015 RAHUL DAVEY, HIEU Miranda Ot V45.81 AORTOCORONARY BYPASS 01/04/2015 RAHUL DAVEY, HIEU Miranda Ot V57.89 REHABILITATION PROC NEC 01/01/2016 OSMANY ALDRICH N Ot 202.40 01/01/2016 OSMANY ALDRICH N Ot 250.00 01/01/2016 OSMANY ALDRICH N Ot 300.00 01/01/2016 OSMANY ALDRICH N Ot 414.00 01/01/2016 OSMANY ALDRICH N Ot 428.0 01/01/2016 OSMANY ALDRICH N Ot 600.00 01/01/2016 OSMANY ALDRICH N Ot E11.9 TYPE 2 DIABETES MELLITUS WITHOUT COMPLIC 01/01/2016 OSMANY ALDRICH N Ot F41.9 ANXIETY DISORDER, UNSPECIFIED 01/01/2016 OSMANY ALDRICH N Ot I25.10 ATHSCL HEART DISEASE OF [place] CORONARY 01/01/2016 OSMANY ALDRICH N Ot I50.9 HEART FAILURE, UNSPECIFIED 01/01/2016 OSMANY ALDRICH N Ot N40.0 ENLARGED PROSTATE WITHOUT LOWER URINARY 01/01/2016 OSMANY ALDRICH N Ot V15.82 01/01/2016 OSMANY ALDRICH N Ot V45.81 01/01/2016 OSMANY ALDRICH N Ot V58.67 01/01/2016 OSMANY ALDRICH N Ot V58.69 01/01/2016 OSMANY ALDRICH Ot Z79.4 SEMICONDUCTOR BONDER (CURRENT) USE OF INSULIN 01/01/2016 OSMANY ALDRICH Ot Z87.891 PERSONAL HISTORY OF NICOTINE DEPENDENCE 01/01/2016 OSMANY ALDRICH Ot Z95.1 PRESENCE OF AORTOCORONARY BYPASS GRAFT 01/03/2016 MALACHI DAVEY, AHSAN Shipman Ot V72.84 EXAM PRE-OPERATIVE NOS 01/03/2016 MALACHI DAVEY, AHSAN Shipman Ot 280.0 CHR BLOOD LOSS ANEMIA 01/03/2016 [...] ALDRICH N Ot 428.0 01/03/2016 OSMANY ALDRICH Ot 600.00 01/03/2016 OSMANY ALDRICH Ot V15.82 01/03/2016 OSMANY ALDRICH Ot V45.81 01/03/2016 OSMANY ALDRICH Ot V58.67 01/03/2016 OSMANY ALDRICH Ot V58.69 01/11/2016 OSMANY ALDRICH N Ot 202.40 01/11/2016 OSMANY ALDRICH N Ot 250.00 01/11/2016 OSMANY ALDRICH N Ot 300.00 01/11/2016 OSMANY ALDRICH N Ot 414.00 01/11/2016 OSMANY ALDRICH N Ot 428.0 01/11/2016 OSMANY ALDRICH N Ot 600.00 01/11/2016 OSMANY ALDRICH N Ot V15.82 01/11/2016 OSMANY ALDRICH N Ot V45.81 01/11/2016 OSMANY ALDRICH N Ot V58.67 01/11/2016 OSMANY ALDRICH N Ot V58.69 01/25/2016 HIEU KAY MD Ot E11.9 TYPE 2 DIABETES MELLITUS WITHOUT COMPLIC 01/25/2016 HIEU KAY MD Ot E78.2 MIXED HYPERLIPIDEMIA 01/25/2016 HIEU KAY MD Ot 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 01/25/2016 HIEU KAY MD Ot I10 ESSENTIAL (PRIMARY) HYPERTENSION 01/25/2016 HIEU KAY MD Ot I25.10 ATHSCL HEART DISEASE OF [place] CORONARY 01/25/2016 HIEU KAY MD Ot I49.1 ATRIAL PREMATURE DEPOLARIZATION 01/25/2016 HIEU KAY MD, Ot K80.20 CALCULUS OF GALLBLADDER W/O CHOLECYSTITI 01/25/2016 HIEU KAY MD Ot Z79.4 SEMICONDUCTOR BONDER (CURRENT) USE OF INSULIN 02/14/2016 HIEU KAY MD Ot I49.1 ATRIAL PREMATURE DEPOLARIZATION 02/15/2016 HIEU KAY MD Ot E11.9 TYPE 2 DIABETES MELLITUS WITHOUT COMPLIC 02/15/2016 HIEU KAY MD, Ot E78.2 MIXED HYPERLIPIDEMIA 02/15/2016 HIEU KAY MD Ot E88.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 OF PLASMA-PROTEIN METABOLI 02/15/2016 HIEU KAY MD, Ot I10 ESSENTIAL (PRIMARY) HYPERTENSION 02/15/2016 HIEU KAY MD Ot I25.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 02/15/2016 HIEU KAY MD Ot I49.1 ATRIAL PREMATURE DEPOLARIZATION 02/15/2016 HIEU KAY MD Ot Z79.4 HALFWAY (CURRENT) USE OF INSULIN 02/27/2016 OSMANY ALDRICH Ot 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 02/27/2016 OSMANY ALDRICH Ot E11.9 TYPE 2 DIABETES MELLITUS WITHOUT COMPLIC 02/27/2016 OSMANY ALDRICH Ot F41.9 ANXIETY DISORDER, UNSPECIFIED 02/27/2016 OSMANY ALDRICH Ot I25.10 ATHSCL HEART DISEASE OF [place] CORONARY 02/27/2016 OSMANY ALDRICH Ot I50.9 HEART FAILURE, UNSPECIFIED 02/27/2016 OSMANY ALDRICH Ot N40.0 ENLARGED PROSTATE WITHOUT LOWER URINARY 02/27/2016 OSMANY ALDRICH Ot Z79.4 HALFWAY (CURRENT) USE OF INSULIN 02/27/2016 OSMANY ALDRICH Ot Z79.899 OTHER HALFWAY (CURRENT) DRUG THERAPY 02/27/2016 OSMANY ALDRICH Ot [...] DEPOLARIZATION 03/06/2016 HIEU KAY MD Ot Z79.4 SEMICONDUCTOR BONDER (CURRENT) USE OF INSULIN 04/09/2016 OSMANY ALDRICH Ot 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 04/09/2016 OSMANY ALDRICH Ot E11.9 TYPE 2 DIABETES MELLITUS WITHOUT COMPLIC 04/09/2016 OSMANY ALDRICH Ot F41.9 ANXIETY DISORDER, UNSPECIFIED 04/09/2016 OSMANY ALDRICH Ot I25.10 ATHSCL HEART DISEASE OF [place] CORONARY 04/09/2016 OSMANY ALDRICH Ot I50.9 HEART FAILURE, UNSPECIFIED 04/09/2016 OSMANY ALDRICH Ot N40.0 BENIGN PROSTATIC HYPERPLASIA WITHOUT LOW 04/09/2016 OSMANY ALDRICH N Ot Z79.4 SEMICONDUCTOR BONDER (CURRENT) USE OF INSULIN 04/09/2016 OSMANY ALDRICH N Ot Z79.899 OTHER SEMICONDUCTOR BONDER (CURRENT) DRUG THERAPY 04/09/2016 OSMANY ALDRICH Ot Z87.891 PERSONAL HISTORY OF NICOTINE DEPENDENCE 04/09/2016 OSMANY ALDRICH N Ot Z95.1 PRESENCE OF AORTOCORONARY BYPASS GRAFT 04/10/2016 OSMANY ALDRICH N Ot 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 04/10/2016 OSMANY ALDRICH Ot E11.9 TYPE 2 DIABETES MELLITUS WITHOUT COMPLIC 04/10/2016 OSMANY ALDRICH Ot F41.9 ANXIETY DISORDER, UNSPECIFIED 04/10/2016 OSMANY ALDRICH Ot I25.10 ATHSCL HEART DISEASE OF [place] CORONARY 04/10/2016 OSMANY ALDRICH Ot I50.9 HEART FAILURE, UNSPECIFIED 04/10/2016 OSMANY ALDRICH Ot N40.0 BENIGN PROSTATIC HYPERPLASIA WITHOUT LOW 04/10/2016 OSMANY ALDRICH N Ot Z79.4 SEMICONDUCTOR BONDER (CURRENT) USE OF INSULIN 04/10/2016 OSMANY ALDRICH Ot Z79.899 OTHER SEMICONDUCTOR BONDER (CURRENT) DRUG THERAPY 04/10/2016 OSMANY ALDRICH Ot Z87.891 PERSONAL HISTORY OF NICOTINE DEPENDENCE 04/10/2016 OSMANY ALDRICH Ot Z95.1 PRESENCE OF AORTOCORONARY BYPASS GRAFT 05/20/2016 MALACHI DAVEY, AHSAN Shipman Ot V72.84 EXAM PRE-OPERATIVE NOS 05/20/2016 AHSAN [...] ATHEROSCLER NOS TYPE VESSEL, NATIV 05/20/2016 HIEU KYA MD Ot 427.69 PREMATURE BEATS NEC 05/20/2016 Ot 240.9 GOITER NOS 05/20/2016 HIEU KAY MD Ot E11.9 TYPE 2 DIABETES MELLITUS WITHOUT COMPLIC 05/20/2016 HIEU KAY MD Ot E78.2 MIXED HYPERLIPIDEMIA 05/20/2016 HIEU KAY MD Ot 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 05/20/2016 HIEU KAY MD Ot I10 ESSENTIAL (PRIMARY) HYPERTENSION 05/20/2016 HIEU KAY MD Ot I25.10 ATHSCL HEART DISEASE OF [place] CORONARY 05/20/2016 HIEU KAY MD Ot I49.1 ATRIAL PREMATURE DEPOLARIZATION 05/20/2016 HIEU KAY MD Ot K80.20 CALCULUS OF GALLBLADDER W/O CHOLECYSTITI 05/20/2016 HIEU KAY MD Ot Z79.4 HALFWAY (CURRENT) USE OF INSULIN 05/20/2016 HIEU KAY [...] DEPOLARIZATION 05/20/2016 HIEU KAY MD Ot Z79.4 HALFWAY (CURRENT) USE OF INSULIN 05/20/2016 OSMANY ALDRICH Ot 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 05/20/2016 OSMANY ALDRICH Ot E11.9 TYPE 2 DIABETES MELLITUS WITHOUT COMPLIC 05/20/2016 OSMANY ALDRICH Ot F41.9 ANXIETY DISORDER, UNSPECIFIED 05/20/2016 OSMANY ALDRICH Ot I25.10 ATHSCL HEART DISEASE OF [place] CORONARY 05/20/2016 OSMANY ALDRICH Ot I50.9 HEART FAILURE, UNSPECIFIED 05/20/2016 OSMANY ALDRICH Ot N40.0 BENIGN PROSTATIC HYPERPLASIA WITHOUT LOW 05/20/2016 OSMANY ALDRICH Ot Z79.4 SEMICONDUCTOR BONDER (CURRENT) USE OF INSULIN 05/20/2016 OSMANY ALDRICH Ot Z79.899 OTHER SEMICONDUCTOR BONDER (CURRENT) DRUG THERAPY 05/20/2016 OSMANY ALDRICH Ot Z87.891 PERSONAL HISTORY OF NICOTINE DEPENDENCE 05/20/2016 OSMANY ALDRICH Esteban Ot Z95.1 PRESENCE OF AORTOCORONARY BYPASS GRAFT 05/21/2016 IVETH MORAN MD Ot G20 PARKINSON'S DISEASE 06/12/2016 IVETH MORAN MD, Ot G20 PARKINSON'S DISEASE 09/24/2016 AHSAN LY MD Ot B95.2 ENTEROCOCCUS THE CAUSE OF DISEASES CL 09/24/2016 AHSAN LY MD Ot 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 09/24/2016 AHSAN LY MD Ot E11.9 TYPE 2 DIABETES MELLITUS WITHOUT COMPLIC 09/24/2016 AHSAN LY MD Ot G47.30 SLEEP APNEA, UNSPECIFIED 09/24/2016 AHSAN LY MD Ot I10 ESSENTIAL (PRIMARY) HYPERTENSION 09/24/2016 AHSAN LY MD Ot I25.10 ATHSCL HEART DISEASE OF [place] CORONARY 09/24/2016 AHSAN LY MD Ot I71.4 ABDOMINAL AORTIC ANEURYSM, WITHOUT RUPTU 09/24/2016 AHSAN LY MD, Ot N39.0 URINARY TRACT INFECTION, SITE NOT SPECIF 09/24/2016 AHSAN LY MD, Ot N40.0 BENIGN PROSTATIC HYPERPLASIA WITHOUT LOW 09/24/2016 AHSAN LY MD Ot R09.02 HYPOXEMIA 09/24/2016 AHSAN LY MD Ot R55 SYNCOPE AND COLLAPSE 09/24/2016 AHSAN LY MD Ot Z79.4 SEMICONDUCTOR BONDER (CURRENT) USE OF INSULIN 09/24/2016 AHSAN LY MD Ot Z95.1 PRESENCE OF AORTOCORONARY BYPASS GRAFT 09/24/2016 AHSAN LY MD Ot Z95.5 PRESENCE OF CORONARY ANGIOPLASTY IMPLANT 09/30/2016 AHSAN LY MD Ot V72.84 EXAM PRE-OPERATIVE NOS 09/30/2016 AHSAN LY MD Ot 280.0 CHR BLOOD LOSS ANEMIA 09/30/2016 AHSAN LY MD Ot 578.9 GASTROINTEST HEMORR NOS 09/30/2016 HIEU KAY MD Ot 272.4 HYPERLIPIDEMIA NEC/NOS 09/30/2016 HIEU KAY MD Ot 278.00 OBESITY, NOS 09/30/2016 HIEU KAY MD Ot 401.9 HYPERTENSION NOS 09/30/2016 HIEU KAY MD Ot 414.00 CORON ATHEROSCLER NOS TYPE VESSEL, NATIV 09/30/2016 HIEU KAY MD Ot 427.69 PREMATURE BEATS NEC 09/30/2016 HIEU KAY MD Ot 272.4 HYPERLIPIDEMIA NEC/NOS 09/30/2016 HIEU KAY MD Ot 278.00 OBESITY, NOS 09/30/2016 HIEU KAY MD Ot 401.9 HYPERTENSION NOS 09/30/2016 HIEU KAY MD Ot 414.00 CORON ATHEROSCLER NOS TYPE VESSEL, NATIV 09/30/2016 HIEU KAY MD Ot 427.69 PREMATURE BEATS NEC 09/30/2016 Ot 240.9 GOITER NOS 09/30/2016 HIEU KAY MD Ot E11.9 TYPE 2 DIABETES MELLITUS WITHOUT COMPLIC 09/30/2016 HIEU KAY MD Ot E78.2 MIXED HYPERLIPIDEMIA 09/30/2016 HIEU KAY MD Ot E88.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 OF PLASMA-PROTEIN METABOLI 09/30/2016 HIEU KAY MD Ot I10 ESSENTIAL (PRIMARY) HYPERTENSION 09/30/2016 HIEU KAY MD Ot I25.10 ATHSCL HEART DISEASE OF [place] CORONARY 09/30/2016 HIEU KAY MD Ot I49.1 ATRIAL PREMATURE DEPOLARIZATION 09/30/2016 HIEU KAY MD Ot K80.20 CALCULUS OF GALLBLADDER W/O CHOLECYSTITI 09/30/2016 HIEU KAY MD Ot Z79.4 SEMICONDUCTOR BONDER (CURRENT) USE OF INSULIN 09/30/2016 HIEU KAY MD Ot E11.9 TYPE 2 DIABETES MELLITUS WITHOUT COMPLIC 09/30/2016 HIEU KAY MD Ot E78.2 MIXED HYPERLIPIDEMIA 09/30/2016 HIEU KAY MD Ot E88.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 OF PLASMA-PROTEIN METABOLI 09/30/2016 HIEU KAY MD Ot I10 ESSENTIAL (PRIMARY) HYPERTENSION 09/30/2016 HIEU KAY MD Ot I25.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 09/30/2016 HIEU KAY MD Ot I49.1 ATRIAL PREMATURE DEPOLARIZATION 09/30/2016 HIEU KAY MD Ot Z79.4 SEMICONDUCTOR BONDER (CURRENT) USE OF INSULIN 09/30/2016 OSMANY ALDRICH Ot 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 09/30/2016 OSMANY ALDRICH Ot E11.9 TYPE 2 DIABETES MELLITUS WITHOUT COMPLIC 09/30/2016 OSMANY ALDRICH Ot F41.9 ANXIETY DISORDER, UNSPECIFIED 09/30/2016 OSMANY ALDRICH Ot I25.10 ATHSCL HEART DISEASE OF [place] CORONARY 09/30/2016 OSMANY ALDRICH Ot I50.9 HEART FAILURE, UNSPECIFIED 09/30/2016 OSMANY ALDRICH Ot N40.0 BENIGN PROSTATIC HYPERPLASIA WITHOUT LOW 09/30/2016 OSMANY ALDRICH Ot Z79.4 SEMICONDUCTOR BONDER (CURRENT) USE OF INSULIN 09/30/2016 OSMANY ALDRICH Ot Z79.899 OTHER HALFWAY (CURRENT) DRUG THERAPY 09/30/2016 OSMANY ALDRICH Ot Z87.891 PERSONAL HISTORY OF NICOTINE DEPENDENCE 09/30/2016 OSMANY ALDRICH Ot Z95.1 PRESENCE OF AORTOCORONARY BYPASS GRAFT 09/30/2016 DEAN DAVEY, IVETH Lopez Ot G20 PARKINSON'S DISEASE 10/03/2016 Ot 202.40 LEUKEMIC RETICULOENDOTHELLOSIS EXTRNDL 10/03/2016 Ot 250.00 DIAB EDSON WO COMPL, TYPE II OR UNSPEC TY 10/03/2016 Ot 272.4 HYPERLIPIDEMIA NEC/NOS 10/03/2016 Ot 401.9 HYPERTENSION NOS 10/03/2016 Ot 414.01 CORONARY ATHEROSCLEROSIS OF [place] CORON 10/03/2016 Ot 427.69 PREMATURE BEATS NEC 10/03/2016 Ot 794.30 [facility] CARDIOVASC STUDY NOS 10/03/2016 Ot V45.82 PERCUTANEOUS TRANSLUM CORON ANGIOPLASTY 10/03/2016 Ot V58.67 LONG-TERM ( CURRENT) USE OF INSULIN 10/03/2016 Ot V58.69 OTH MED,LT, CURRENT USE 01/10/2017 OSMANY ALDRICH Esteban Ot 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 01/10/2017 VALDEMAR OSMANY Orellana Ot E11.9 TYPE 2 DIABETES MELLITUS WITHOUT COMPLIC 01/10/2017 OSMANY ALDRICH Ot F41.9 ANXIETY DISORDER, UNSPECIFIED 01/10/2017 OSMANY ALDRICH Esteban Ot I25.10 ATHSCL HEART DISEASE OF [place] CORONARY 01/10/2017 OSMANY ALDRICH Ot I50.9 HEART FAILURE, UNSPECIFIED 01/10/2017 OSMANY ALDRICH Ot N40.0 BENIGN PROSTATIC HYPERPLASIA WITHOUT LOW 01/10/2017 GIAN ALDRICHSHAWN Esteban Ot Z79.4 HALFWAY (CURRENT) USE OF INSULIN 01/10/2017 OSMANY ALDRICH Ot Z79.899 OTHER SEMICONDUCTOR BONDER (CURRENT) DRUG THERAPY 01/10/2017 VALDEMAR OSMANY Esteban Ot Z87.891 PERSONAL HISTORY OF NICOTINE DEPENDENCE 01/10/2017 OSMANY ALDRICH Ot Z95.1 PRESENCE OF AORTOCORONARY BYPASS GRAFT 02/02/2017 REYES MELENDEZ Ot E78.2 MIXED HYPERLIPIDEMIA 02/02/2017 REYES MELENDEZ Ot G47.33 OBSTRUCTIVE SLEEP APNEA (ADULT) (PEDIATR 02/02/2017 REYES MELENDEZ Ot I10 ESSENTIAL (PRIMARY) HYPERTENSION 02/02/2017 REYES MELENDEZ Ot I25.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 02/18/2017 REYES MELENDEZ Ot E78.2 MIXED HYPERLIPIDEMIA 02/18/2017 REYES MELENDEZ Ot G47.33 OBSTRUCTIVE SLEEP APNEA (ADULT) (PEDIATR 02/18/2017 REYES MELENDEZ Ot I10 ESSENTIAL (PRIMARY) HYPERTENSION 02/18/2017 REYES MELENDEZ Ot I25.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 02/28/2017 OSMANY ALDRICH N Ot 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 02/28/2017 VALDEMAROSMANY COSTELLO N Ot E11.9 TYPE 2 DIABETES MELLITUS WITHOUT COMPLIC 02/28/2017 OSMANY ALDRICH N Ot F41.9 ANXIETY DISORDER, UNSPECIFIED 02/28/2017 OSMANY ALDRICH N Ot I25.10 ATHSCL HEART DISEASE OF [place] CORONARY 02/28/2017 OSMANY ALDRICH N Ot I50.9 HEART FAILURE, UNSPECIFIED 02/28/2017 VALDEMAROSMANY N Ot N40.0 BENIGN PROSTATIC HYPERPLASIA WITHOUT LOW 02/28/2017 VALDEMAROSMANY N Ot Z79.4 SEMICONDUCTOR BONDER (CURRENT) USE OF INSULIN 02/28/2017 VALDEMARGIANSHAWN N Ot Z79.899 OTHER SEMICONDUCTOR BONDER (CURRENT) DRUG THERAPY 02/28/2017 VALDEMARGIANSHAWN N Ot Z87.891 PERSONAL HISTORY OF NICOTINE DEPENDENCE 02/28/2017 VALDEMARGIANSHAWN N Ot Z95.1 PRESENCE OF AORTOCORONARY BYPASS GRAFT 04/09/2017 OSMANY ALDRICH N Ot 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 04/09/2017 VALDEMAROSMANY COSTELLO N Ot E11.9 TYPE 2 DIABETES MELLITUS WITHOUT COMPLIC 04/09/2017 VALDEMAR OSMANY N Ot F41.9 ANXIETY DISORDER, UNSPECIFIED 04/09/2017 OSMANY ALDRICH N Ot I25.10 ATHSCL HEART DISEASE OF [place] CORONARY 04/09/2017 OSMANY ALDRICH N Ot I50.9 HEART FAILURE, UNSPECIFIED 04/09/2017 VALDEMAROSMANY COSTELLO N Ot N40.0 BENIGN PROSTATIC HYPERPLASIA WITHOUT LOW 04/09/2017 VALDEMARGIANSHAWN N Ot Z79.4 SEMICONDUCTOR BONDER (CURRENT) USE OF INSULIN 04/09/2017 OSMANY ALDRICH N Ot Z79.899 OTHER SEMICONDUCTOR BONDER (CURRENT) DRUG THERAPY 04/09/2017 VALDEMARGIANSHAWN N Ot Z87.891 PERSONAL HISTORY OF NICOTINE DEPENDENCE 04/09/2017 VALDEMARGIANSHAWN N Ot Z95.1 PRESENCE OF AORTOCORONARY BYPASS GRAFT 04/15/2017 OSMANY ALDRICH N Ot 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 04/15/2017 VALDEMAROSMANY N Ot E11.9 TYPE 2 DIABETES MELLITUS WITHOUT COMPLIC 04/15/2017 OSMANY ALDRICH Ot F41.9 ANXIETY DISORDER, UNSPECIFIED 04/15/2017 OSMANY ALDRICH Ot I25.10 ATHSCL HEART DISEASE OF [place] CORONARY 04/15/2017 OSMANY ALDRICH Ot I50.9 HEART FAILURE, UNSPECIFIED 04/15/2017 OSMANY ALDRICH Ot N40.0 BENIGN PROSTATIC HYPERPLASIA WITHOUT LOW 04/15/2017 OSMANY ALDRICH Ot Z79.4 HALFWAY (CURRENT) USE OF INSULIN 04/15/2017 OSMANY ALDRICH Ot Z79.899 OTHER SEMICONDUCTOR BONDER (CURRENT) DRUG THERAPY 04/15/2017 OSMANY ALDRICH Ot Z87.891 PERSONAL HISTORY OF NICOTINE DEPENDENCE 04/15/2017 OSMANY ALDRICH Ot Z95.1 PRESENCE OF AORTOCORONARY BYPASS GRAFT 07/18/2017 MALACHI DAVEY, AHSAN Shipman Ot V72.84 EXAM PRE-OPERATIVE NOS 07/18/2017 AHSAN LY MD Ot 280.0 CHR BLOOD LOSS ANEMIA 07/18/2017 AHSAN LY MD Ot 578.9 GASTROINTEST HEMORR NOS 07/18/2017 HIEU KAY MD Ot 272.4 HYPERLIPIDEMIA NEC/NOS 07/18/2017 HIEU KAY MD Ot 278.00 OBESITY, NOS 07/18/2017 HIEU KAY MD Ot 401.9 HYPERTENSION NOS 07/18/2017 HIEU KAY MD Ot 414.00 CORON ATHEROSCLER NOS TYPE VESSEL, NATIV 07/18/2017 HIEU KAY MD Ot 427.69 PREMATURE BEATS NEC 07/18/2017 HIEU KAY MD Ot 272.4 HYPERLIPIDEMIA NEC/NOS 07/18/2017 HIEU KAY MD Ot 278.00 OBESITY, NOS 07/18/2017 HIEU KAY MD Ot 401.9 HYPERTENSION NOS 07/18/2017 HIEU KAY MD Ot 414.00 CORON ATHEROSCLER NOS TYPE VESSEL, NATIV 07/18/2017 HIEU KAY MD Ot 427.69 PREMATURE BEATS NEC 07/18/2017 Ot 240.9 GOITER NOS 07/18/2017 HIEU KAY MD Ot E11.9 TYPE 2 DIABETES MELLITUS WITHOUT COMPLIC 07/18/2017 HIEU KAY MD Ot E78.2 MIXED HYPERLIPIDEMIA 07/18/2017 HIEU KAY MD, Ot E88.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 OF PLASMA-PROTEIN METABOLI 07/18/2017 HIEU KAY MD Ot I10 ESSENTIAL (PRIMARY) HYPERTENSION 07/18/2017 HIEU KAY MD Ot I25.10 ATHSCL HEART DISEASE OF [place] CORONARY 07/18/2017 HIEU KAY MD Ot I49.1 ATRIAL PREMATURE DEPOLARIZATION 07/18/2017 HIEU KAY MD Ot K80.20 CALCULUS OF GALLBLADDER W/O CHOLECYSTITI 07/18/2017 HIEU KAY MD, Ot Z79.4 HALFWAY (CURRENT) USE OF INSULIN 07/18/2017 HIEU KAY MD Ot E11.9 TYPE 2 DIABETES MELLITUS WITHOUT COMPLIC 07/18/2017 HIEU KAY MD, Ot E78.2 MIXED HYPERLIPIDEMIA 07/18/2017 HIEU KAY MD, Ot E88.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 OF PLASMA-PROTEIN METABOLI 07/18/2017 HIEU KAY MD Ot I10 ESSENTIAL (PRIMARY) HYPERTENSION 07/18/2017 HIEU KAY MD, Ot I25.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 07/18/2017 HIEU KAY MD, Ot I49.1 ATRIAL PREMATURE DEPOLARIZATION 07/18/2017 HIEU KAY MD, Ot Z79.4 SEMICONDUCTOR BONDER (CURRENT) USE OF INSULIN 07/18/2017 IVETH MORAN MD Ot G20 PARKINSON'S DISEASE 07/18/2017 REYES MELENDEZ Ot E78.2 MIXED HYPERLIPIDEMIA 07/18/2017 REYES MELENDEZ Ot G47.33 OBSTRUCTIVE SLEEP APNEA (ADULT) (PEDIATR 07/18/2017 REYES MELENDEZ Ot I10 ESSENTIAL (PRIMARY) HYPERTENSION 07/18/2017 REYES MELENDEZ Ot I25.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 07/18/2017 OSMANY ALDRICH Ot 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 07/18/2017 OSMANY ALDRICH Ot E11.9 TYPE 2 DIABETES MELLITUS WITHOUT COMPLIC 07/18/2017 OSMANY ALDRICH Ot F41.9 ANXIETY DISORDER, UNSPECIFIED 07/18/2017 OSMANY ALDRICH Ot I25.10 ATHSCL HEART DISEASE OF [place] CORONARY 07/18/2017 OSMANY ALDRICH Ot I50.9 HEART FAILURE, UNSPECIFIED 07/18/2017 OSMANY ALDRICH Ot N40.0 BENIGN PROSTATIC HYPERPLASIA WITHOUT LOW 07/18/2017 OSMANY ALDRICH Ot Z79.4 SEMICONDUCTOR BONDER (CURRENT) USE OF INSULIN 07/18/2017 OSMANY ALDRICH Ot Z79.899 OTHER HALFWAY (CURRENT) DRUG THERAPY 07/18/2017 OSMANY ALDRICH Ot Z87.891 PERSONAL HISTORY OF NICOTINE DEPENDENCE 07/18/2017 OSMANY ALDRICH Ot Z95.1 PRESENCE OF AORTOCORONARY BYPASS GRAFT 08/21/2017 MALACHI DAVEY, AHSAN Shipman Ot V72.84 EXAM PRE-OPERATIVE NOS 08/21/2017 AHSAN LY MD Ot 280.0 CHR BLOOD LOSS ANEMIA 08/21/2017 AHSAN LY MD Ot 578.9 GASTROINTEST HEMORR NOS 08/21/2017 HIEU KAY MD Ot 272.4 HYPERLIPIDEMIA NEC/NOS 08/21/2017 HIEU KAY MD Ot 278.00 OBESITY, NOS 08/21/2017 HIEU KAY MD Ot 401.9 HYPERTENSION NOS 08/21/2017 HIEU KAY MD Ot 414.00 CORON ATHEROSCLER NOS TYPE VESSEL, NATIV 08/21/2017 HIEU KAY MD Ot 427.69 PREMATURE BEATS NEC 08/21/2017 HIEU KAY MD Ot 272.4 HYPERLIPIDEMIA NEC/NOS 08/21/2017 HIEU KAY MD Ot 278.00 OBESITY, NOS 08/21/2017 HIEU KAY MD Ot 401.9 HYPERTENSION NOS 08/21/2017 HIEU KAY MD Ot 414.00 CORON ATHEROSCLER NOS TYPE VESSEL, NATIV 08/21/2017 HIEU KAY MD Ot 427.69 PREMATURE BEATS NEC 08/21/2017 Ot 240.9 GOITER NOS 08/21/2017 HIEU KAY MD Ot E11.9 TYPE 2 DIABETES MELLITUS WITHOUT COMPLIC 08/21/2017 HIEU KAY MD Ot E78.2 MIXED HYPERLIPIDEMIA 08/21/2017 HIEU KAY MD Ot E88.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 OF PLASMA-PROTEIN METABOLI 08/21/2017 HIEU KAY MD Ot I10 ESSENTIAL (PRIMARY) HYPERTENSION 08/21/2017 HIEU KAY MD, Ot I25.10 ATHSCL HEART DISEASE OF [place] CORONARY 08/21/2017 HIEU KAY MD, Ot I49.1 ATRIAL PREMATURE DEPOLARIZATION 08/21/2017 HIEU KAY MD, Ot K80.20 CALCULUS OF GALLBLADDER W/O CHOLECYSTITI 08/21/2017 HIEU KAY MD, Ot Z79.4 SEMICONDUCTOR BONDER (CURRENT) USE OF INSULIN 08/21/2017 HIEU KAY MD Ot E11.9 TYPE 2 DIABETES MELLITUS WITHOUT COMPLIC 08/21/2017 HIEU KAY MD, Ot E78.2 MIXED HYPERLIPIDEMIA 08/21/2017 HIEU KAY MD, Ot E88.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 OF PLASMA-PROTEIN METABOLI 08/21/2017 HIEU KAY MD, Ot I10 ESSENTIAL (PRIMARY) HYPERTENSION 08/21/2017 HIEU KAY MD, Ot I25.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 08/21/2017 HIEU KAY MD, Ot I49.1 ATRIAL PREMATURE DEPOLARIZATION 08/21/2017 HIEU KAY MD, Ot Z79.4 SEMICONDUCTOR BONDER (CURRENT) USE OF INSULIN 08/21/2017 IVETH MORAN MD Ot G20 PARKINSON'S DISEASE 08/21/2017 REYES MELENDEZ Ot E78.2 MIXED HYPERLIPIDEMIA 08/21/2017 REYES MELENDEZ Ot G47.33 OBSTRUCTIVE SLEEP APNEA (ADULT) (PEDIATR 08/21/2017 REYES MELENDEZ Ot I10 ESSENTIAL (PRIMARY) HYPERTENSION 08/21/2017 REYES MELENDEZ Ot I25.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 08/21/2017 OSMANY ALDRICH Ot 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 08/21/2017 OSMANY ALDRICH Ot E11.9 TYPE 2 DIABETES MELLITUS WITHOUT COMPLIC 08/21/2017 OSMANY ALDRICH Ot F41.9 ANXIETY DISORDER, UNSPECIFIED 08/21/2017 OSMANY ALDRICH Ot I25.10 ATHSCL HEART DISEASE OF [place] CORONARY 08/21/2017 OSMANY ALDRICH Ot I50.9 HEART FAILURE, UNSPECIFIED 08/21/2017 OSMANY ALDRICH Ot N40.0 BENIGN PROSTATIC HYPERPLASIA WITHOUT LOW 08/21/2017 OSMANY ALDRICH Ot Z79.4 HALFWAY (CURRENT) USE OF INSULIN 08/21/2017 OSMANY ALDRICH Ot Z79.899 OTHER HALFWAY (CURRENT) DRUG THERAPY 08/21/2017 OSMANY ALDRICH Ot Z87.891 PERSONAL HISTORY OF NICOTINE DEPENDENCE 08/21/2017 OSMANY ALDRICH Ot Z95.1 PRESENCE OF AORTOCORONARY BYPASS GRAFT 08/21/2017 REYES MELENDEZ Ot E78.2 MIXED HYPERLIPIDEMIA 08/21/2017 REYES MELENDEZ Ot I10 ESSENTIAL (PRIMARY) HYPERTENSION 08/21/2017 REYES MELENDEZ Ot I25.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 08/21/2017 REYES MELENDEZ Ot I49.1 ATRIAL PREMATURE DEPOLARIZATION 08/22/2017 JOLANTA DAVEY, ARMIN Campbell Ot K76.0 FATTY (CHANGE OF) LIVER, NOT ELSEWHERE C 08/22/2017 JOLANTA DAVEY, ARMIN Campbell Ot N28.1 CYST OF KIDNEY, ACQUIRED 08/22/2017 JOLANTA DAVEY, ARMIN Campbell Ot K76.0 FATTY (CHANGE OF) LIVER, NOT ELSEWHERE C 08/22/2017 JOLANTA DAVEY, ARMIN Campbell Ot N28.1 CYST OF KIDNEY, ACQUIRED 08/25/2017 OSMANY ALDRICH Ot 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 08/25/2017 OSMANY ALDRICH Ot E11.9 TYPE 2 DIABETES MELLITUS WITHOUT COMPLIC 08/25/2017 OSMANY ALDRICH Ot F41.9 ANXIETY DISORDER, UNSPECIFIED 08/25/2017 OSMANY ALDRICH Ot I25.10 ATHSCL HEART DISEASE OF [place] CORONARY 08/25/2017 OSMANY ALDRICH Ot I50.9 HEART FAILURE, UNSPECIFIED 08/25/2017 OSMANY ALDRICH Ot N40.0 BENIGN PROSTATIC HYPERPLASIA WITHOUT LOW 08/25/2017 OSMANY ALDRICH Ot Z79.4 HALFWAY (CURRENT) USE OF INSULIN 08/25/2017 OSMANY ALDRICH Ot Z79.899 OTHER SEMICONDUCTOR BONDER (CURRENT) DRUG THERAPY 08/25/2017 OSMANY ALDRICH Ot Z87.891 PERSONAL HISTORY OF NICOTINE DEPENDENCE 08/25/2017 VALDEMAROSMANY COSTELLO Esteban Ot Z95.1 PRESENCE OF AORTOCORONARY BYPASS GRAFT 08/26/2017 REYES MELENDEZ Ot E78.2 MIXED HYPERLIPIDEMIA 08/26/2017 REYES MELENDEZ Ot I10 ESSENTIAL (PRIMARY) HYPERTENSION 08/26/2017 REYES MELENDEZ Ot I25.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 08/26/2017 REYES MELENDEZ Ot I49.1 ATRIAL PREMATURE DEPOLARIZATION 08/27/2017 JOLANTA DAVEY, ARMIN Campbell Ot L98.9 DISORDER OF THE SKIN AND SUBCUTANEOUS TI 08/27/2017 JOLANTA DAVEY, ARIMN Campbell Ot Z01.818 ENCOUNTER FOR OTHER PREPROCEDURAL EXAMIN 08/27/2017 JOLANTA DAVEY, ARMIN Campbell Ot Z85.820 PERSONAL HISTORY OF MALIGNANT MELANOMA O Procedures Code Description Performed By Performed On 45.13 OTHER ENDOSCOPY OF INTEST 09/25/2013 45.23 COLONOSCOPY 09/25/2013 Results Test Result Range [id number] - 05/20/16 09:14 Serum or plasma urea nitrogen measurement (mass/volume) 19 mg/dL 7-18 Serum or plasma creatinine measurement (mass/volume) 1.11 mg/dL 0.60-1.30 Serum or plasma urea nitrogen/creatinine mass ratio 17 NRG Serum or plasma creatinine measurement with calculation of estimated glomerular filtration rate > NRG Complete blood count (CBC) with automated white blood cell (WBC) differential - 09/23/16 19:30 Blood leukocytes automated count (number/volume) 8.1 10*3/uL 4.3-11.0 Blood erythrocytes automated count (number/volume) 4.76 10*6/uL 4.35-5.85 Venous blood hemoglobin measurement (mass/volume) 14.0 [...] Automated blood platelet mean volume measurement 10.7 [foz_us] 7.4-10.4 Automated blood neutrophils/100 leukocytes 68 % [...] Serum or plasma sodium measurement (moles/volume) 143 mmol/L 135-145 Serum or plasma potassium measurement (moles/volume) 3.8 mmol/L 3.6-5.0 Serum or plasma chloride measurement (moles/volume) 105 mmol/L 98-107 Carbon dioxide 21 mmol/L 21-32 Serum or plasma anion gap determination (moles/volume) 17 mmol/L 5-14 Serum or plasma urea nitrogen measurement (mass/volume) 20 mg/dL 7-18 Serum or plasma creatinine measurement (mass/volume) 1.09 mg/dL 0.60-1.30 Serum or plasma urea nitrogen/creatinine mass ratio 18 0 -20 Serum or plasma creatinine measurement with calculation [...] or plasma troponin i.cardiac measurement (mass/volume) < ng/ mL <0.30 Serum or plasma thyrotropin measurement by [...] Urine pH measurement by test strip 5 5-9 Specific gravity of urine by test strip 1.025 1.016- 1.022 Urine protein assay by test strip, semi-quantitative [...] culture - 09/23/16 20:39 Bacterial urine culture [id number] NRG COLONY COUNT 10,000/ML - 100,000/ML NRG FTX;REPORTABLE SENSITIVITY REPORTED 09/25/16 9:45 NRG Bacterial susceptibility panel - 09/23/16 20:39 Gentamicin susceptibility test by minimum inhibitory concentration S NRG Vancomycin susceptibility test by minimum inhibitory concentration 1 NRG Levofloxacin susceptibility test by minimum inhibitory concentration 0.5 NRG Tetracycline susceptibility test by minimum inhibitory concentration >= NRG Ampicillin susceptibility test by minimum inhibitory concentration < = NRG Nitrofurantoin susceptibility test by minimum inhibitory [...] Serum or plasma lactate measurement (moles/volume) 2.07 mmol/L 0.50-2.00 Serum or plasma troponin i.cardiac measurement (mass/volume) - 09/24/16 01:30 Serum or plasma troponin i.cardiac measurement (mass/volume) < ng/ mL <0.30 Complete blood count (CBC) with automated white blood cell (WBC) differential - 09/24/16 03:50 Blood leukocytes automated count (number/volume) 7.9 10*3/uL 4.3-11.0 Blood erythrocytes automated count (number/volume) 4.46 10*6/uL 4.35-5.85 Venous blood hemoglobin measurement (mass/volume) 13.2 [...] Automated blood platelet mean volume measurement 10.2 [foz_us] 7.4-10.4 Automated blood neutrophils/100 leukocytes 65 % [...] Serum or plasma sodium measurement (moles/volume) 143 mmol/L 135-145 Serum or plasma potassium measurement (moles/volume) 3.2 mmol/L 3.6-5.0 Serum or plasma chloride measurement (moles/volume) 106 mmol/L 98-107 Carbon dioxide 25 mmol/L 21-32 Serum or plasma anion gap determination (moles/volume) 12 mmol/L 5-14 Serum or plasma urea nitrogen measurement (mass/volume) 15 mg/dL 7-18 Serum or plasma creatinine measurement (mass/volume) 0.80 mg/dL 0.60-1.30 Serum or plasma urea nitrogen/creatinine mass ratio 19 0 -20 Serum or plasma creatinine measurement with calculation [...] Status Pt. Type Provider Facility Loc./Unit Complaint [id number] 08/27/2017 12:15:00 08/27/2017 23:59:59 CLS Preadmit ARMIN STOVER MD [facility] SDC LESION RIGHT KNEE [id number] 08/25/2017 06:17:00 08/25/2017 13:39:00 DIS Outpatient ARMIN STOVER MD [facility] PREOP EXC. RIGHT KNEE LESION [id number] 08/21/2017 08:30:00 08/21/2017 23:59:59 CLS Outpatient ARMIN STOVER MD [facility] RAD RUQ PAIN [id number] 07/18/2017 10:21:00 07/18/2017 23:59:59 CLS Outpatient REYES MELENDEZ [facility] CARD ASDRF [id number] 04/10/2017 00:17:00 04/10/2017 23:59:59 CLS Preadmit OSMANY ALDRICH [facility] ONC [id number] 01/09/2017 08:59:00 04/09/2017 00:01:00 DIS Outpatient OSMANY ALDRICH [facility] ONC [id number] 01/27/2017 11:57:00 01/27/2017 23:59:59 CLS Outpatient REYES MELENDEZ [facility] CARD CAD [id number] 09/23/2016 21:15:00 09/24/2016 10:15:00 DIS Inpatient MALACHI DAVEY, AHSAN Shipman [facility] ICU SYNCOPAL EPISODE,MILD DEHYDRATION,UTI [id number] 05/20/2016 09:02:00 05/20/2016 23:59:59 CLS Outpatient IVETH MORAN MD [facility] RAD PARKINSONS [id number] 01/10/2016 13:38:00 04/09/2016 00:01:00 DIS Outpatient OSMANY ALDRICH [facility] ONC [id number] 02/14/2016 11:01:00 02/14/2016 23:59:59 CLS Outpatient HIEU KAY MD [facility] CARD APC,CAD,HTN,IDDM [id number] 01/03/2016 08:29:00 01/03/2016 23:59:59 CLS Outpatient HIEU KAY MD [facility] RAD APC,CAD,HTN,IDDM [id number] 12/26/2014 13:48:00 01/04/2015 00:01:00 DIS Outpatient OSMANY ALDRICH [facility] ONC [id number] 10/21/2014 11:39:00 01/04/2015 00:01:00 DIS Outpatient HIEU KAY MD [facility] CR STATUS POST ACB [id number] 10/03/2014 11:54:00 10/09/2014 00:01:00 DIS Outpatient HIEU KAY MD [facility] CR STATUS POST ACB [id number] 05/26/2014 13:16:00 08/24/2014 00:01:00 DIS Outpatient OSMANY ALDRICH [facility] ONC [id number] 05/25/2014 08:00:00 05/25/2014 23:59:59 CLS Outpatient HIEU KAY MD [facility] CARD CAD,HTN,HLP [id number] 05/05/2014 09:47:00 05/05/2014 23:59:59 CLS Outpatient HIEU KAY MD [facility] CARD CAD,HTN,HLP [id number] 10/13/2013 08:26:00 10/13/2013 23:59:59 CLS Outpatient AHSAN LY MD [facility] LAB ANEMIA [id number] 09/24/2013 18:05:00 09/30/2013 11:34:00 DIS Inpatient AHSAN LY MD [facility] CSD RECTAL BLEED [id number] 09/23/2013 14:56:00 09/24/2013 12:55:00 DIS Inpatient AHSAN LY MD [facility] ICU RECTAL HEMORRHAGE, ABD PAIN, HYPOKALEMIA [id number] 09/17/2013 06:43:00 09/17/2013 10:10:00 DIS Outpatient AHSAN LY MD [facility] SDC SCREENING [id number] 09/16/2013 07:15:00 09/16/2013 23:59:59 CLS Outpatient AHSAN LY MD [facility] PREOP SCREENING [id number] 07/11/2014 07:50:00 Document Registration [id number] 07/11/2014 07:50:00 Document Registration
[2017-09-08 10:35] VITALS: BP 195/105
[2017-09-08] MEDS ORDERED: ceFAZolin 2 GM IV Premixed 50 ML ONE (11:05)
[2017-09-08] MEDS ORDERED: ceFAZolin 2 GM IV Premixed 50 ML IV ONE (11:15)
[2017-09-08] MEDS ORDERED: BUP/EPI 0.5% 1:200,000 (SENSORCAINE) 30 ML VIAL ONE (11:32)
--- NOTE | 2017-09-08 11:44 | Progress Note-Pre Operative ---
Pre-Operative Progress Note H&P Reviewed The H&P was reviewed, patient examined and no changes noted. Date Seen by Provider: August 18, 2017 Time Seen by Provider: 16:00 Date H&P Reviewed: Sep 08, 2017 Time H&P Reviewed: 11:44 Pre-Operative Diagnosis: skin lesion right thigh ARMIN STOVER MD Sep 08, 2017 11:44
[2017-09-08] MEDS ORDERED: PROPOFOL INJECTION 50 ML IV ONE (11:50)
[2017-09-08] MEDS ORDERED: MIDAZOLAM 2 MG/2 ML (VERSED) VIAL ONE (11:51)
[2017-09-08] MEDS ORDERED: LACTATED RINGERS 1,000 ML IV SCH (12:15)
[2017-09-08] MEDS ORDERED: ACHD5005 PO (12:25)
--- NOTE | 2017-09-08 12:27 | Discharge Inst-Simple/Standard ---
Discharge Inst-Standard Discharge Medications New, Converted or Re-Newed RX: RX on Chart Patient Instructions/Follow Up Plan of Care/Instructions/FU: dressing to be replaced with a band aid in 48 hors. F/U with my nurse in 48 hours for suture removal Activity as Tolerated: Yes Discharge Diet: ADA ARMIN Callahan MD Sep 08, 2017 12:27
--- NOTE | 2017-09-08 12:30 | Operative Report ---
Operative Report Date of Procedure/Surgery Sep 08, 2017 Surgeon (s) ARMIN STOVER MD Artificial Fly Tier (s): N/A Post-Operative Diagnosis same Procedure Performed excision with primary closure Description of Procedure Anesthesia Type: MAC Estimated blood loss (mL): minimal Specimen(s) collected/removed skin lesion from the right anterior thigh Description of the Procedure Indication for the procedure: This gentleman, with a history of malignant melanoma involving his upper back, presented with a dark lesion over the right lower anterior thigh requiring histologic confirmation. Therefore, he was offered a full-thickness excision first. Should a melanoma be discovered, the requirement for additional surgery was highlighted. Informed consent was obtained after reviewing the details of the procedure and complications of postoperative hematoma and wound infection. Description of the procedure: He was placed supine on the operative table and our HARNESS[employer]KER APPRENTICE administered sedation, monitoring his vital signs. 2 g of Ancef were administered intravenously as prophylaxis against wound infection. Right thigh was prepared and draped in the usual sterile manner. Local anesthesia was achieved using 0.5 percent Marcaine with epinephrine. An elliptical incision, 6 cm in length by 3 cm in width was made, in a transverse fashion and the lesion excised down to the subcutaneous tissue. It was oriented with silk sutures and sent for histologic examination. Hemostasis was achieved using cautery and the incision closed using interrupted 30 and 4-0 nylon sutures. A nonadherent dressing was then applied. He tolerated the procedure well and was taken to the nursing area in a stable condition. Findings of the Procedure see op report Allergies and Home Medications Allergies Coded Allergies: No Known Drug Allergies (Unverified , 08/25/17) Home Medications Amlodipine Besylate 10 Mg Tablet, 10 MG PO DAILY, (Reported) Aspirin 81 Mg Tab.chew, 81 MG PO DAILY, (Reported) Carbidopa/Levodopa 1 Each Tablet.er, 1 EACH PO QID, (Reported) Carbidopa/Levodopa 1 Each Tablet, 1 EACH PO QID, (Reported) Cholecalciferol (Vitamin D3) 1,000 Unit Tablet, 1,000 UNIT PO DAILY, (Reported) Clonidine HCl 0.1 Mg Tablet, 0.1 MG PO TID, (Reported) Fish Oil/Dha/Epa 1 Each Capsule, 1 EACH PO DAILY, (Reported) Hydrocodone Bit/Acetaminophen 1 Tab Tab, 1-2 TAB PO 4-6HR PRN for PAIN Prescribed by: ARMIN STOVER on 09/08/17 1225 Insulin Aspart 100 Unit/1 Ml Susp, UNIT SQ SSI, (Reported) Insulin Glargine,Hum.rec.anlog 100 Unit/1 Ml Vial, 45 UNIT SQ HS, (Reported) Insulin Glargine,Hum.rec.anlog 100 Unit/1 Ml Vial, 40 UNIT SQ DAILY, (Reported) Insulin Glargine,Hum.rec.anlog 100 Unit/1 Ml Vial, 45 UNIT SQ HS, (Reported) Lisinopril/Hydrochlorothiazide 1 Each Tablet, 1 EACH PO DAILY, (Reported) Meloxicam 7.5 Mg Tablet, 7.5 MG PO DAILY, (Reported) Metformin HCl 500 Mg Tablet, 1,000 MG PO BID, (Reported) Metoprolol Tartrate 100 Mg Tablet, 150 MG PO BID, (Reported) Potassium Chloride 20 Meq Tab.prt.sr, 20 MEQ PO DAILY, (Reported) Pramipexole Di-HCl 1 Mg Tablet, 1 MG PO TID, (Reported) Rosuvastatin Calcium 20 Mg Tablet, 20 MG PO HS, (Reported) Tamsulosin HCl 0.4 Mg Cap.er.24h, 0.4 MG PO DAILY, (Reported) Patient Home Medication List Home Medication List Reviewed: Yes ARMIN STOVER MD Sep 08, 2017 12:30
[2017-09-08 13:00] VITALS: BP 203/104
[2017-09-08 13:30] VITALS: BP 193/94
== END 2017-09-08 13:40 | disposition home or self-care (01) ==
LOC: SDC 10:14
PROVIDERS: ATTEND Surgery
DX: D03.71 Melanoma in situ of right lower limb, including hip (principal); Z85.820 Personal history of malignant melanoma of skin; I10 Essential (primary) hypertension; I25.10 Atherosclerotic heart disease of native coronary artery without angina pectoris; Z95.1 Presence of aortocoronary bypass graft; Z95.5 Presence of coronary angioplasty implant and graft; I71.4 Abdominal aortic aneurysm, without rupture; G47.33 Obstructive sleep apnea (adult) (pediatric); E11.40 Type 2 diabetes mellitus with diabetic neuropathy, unspecified; N40.0 Benign prostatic hyperplasia without lower urinary tract symptoms; E04.1 Nontoxic single thyroid nodule; Z87.442 Personal history of urinary calculi; Z79.899 Other long term (current) drug therapy; Z79.4 Long term (current) use of insulin
CPT/HCPCS: 82962; 87081; 88305; 88341; 88342

== ENCOUNTER → 2017-10-22 | Outpatient (CLI) | payer MEDICARE, OTHER ==
[~2017-10-22] MED LIST changes: +ACHD5005 PO; -ROSU20TA30 PO; +ROSU20TA31 PO; +RT-ALBUTEROL SULF 2.5 MG/3 ML PRE-MIX VIAL INH ONE; +RT-ALBUTEROL SULF 2.5 MG/3 ML PRE-MIX VIAL ONE
== END ==
LOC: RT 08:13
PROVIDERS: ATTEND Nurse Practitioner Family
DX: R06.00 Dyspnea, unspecified (principal); Z86.711 Personal history of pulmonary embolism
CPT/HCPCS: 94060; 94726; 94729

== ENCOUNTER 2017-10-25 20:35 | Outpatient (CLI) | payer MEDICARE, OTHER ==
[~2017-10-25 20:35] MED LIST changes: -RT-ALBUTEROL SULF 2.5 MG/3 ML PRE-MIX VIAL INH ONE; -RT-ALBUTEROL SULF 2.5 MG/3 ML PRE-MIX VIAL ONE
== END 2017-10-26 05:15 | disposition home or self-care (01) ==
LOC: SLEEP 20:35
PROVIDERS: ATTEND Nurse Practitioner Family
DX: G47.33 Obstructive sleep apnea (adult) (pediatric) (principal)
CPT/HCPCS: 95811